=== PATIENT | female | born 1970 | race Caucasian/White ===

== ENCOUNTER → 2019-06-01 10:49 | Outpatient (BNVA) | payer OTHER, SELFPAY | PROVIDERS: Family Provider Family Medicine; PCP Family Medicine; Visit Provider Nurse Practitioner | DX: M47.816 Spondylosis without myelopathy or radiculopathy, lumbar region (principal); M47.817 Spondylosis without myelopathy or radiculopathy, lumbosacral region; F17.210 Nicotine dependence, cigarettes, uncomplicated; Z79.891 Long term (current) use of opiate analgesic | CPT/HCPCS: 99213 ==

== ENCOUNTER → 2019-09-26 15:26 | Outpatient (BNVA) | payer OTHER, SELFPAY | PROVIDERS: Family Provider Family Medicine; PCP Family Medicine; Visit Provider Anesthesiology | DX: M47.816 Spondylosis without myelopathy or radiculopathy, lumbar region (principal); F17.210 Nicotine dependence, cigarettes, uncomplicated; Z79.891 Long term (current) use of opiate analgesic | CPT/HCPCS: 99213; 99214 ==

== ENCOUNTER → 2019-12-07 10:54 | Outpatient (BNVA) | payer OTHER, SELFPAY | PROVIDERS: Family Provider Family Medicine; PCP Family Medicine; Visit Provider Anesthesiology | DX: M54.42 Lumbago with sciatica, left side (principal); M54.41 Lumbago with sciatica, right side; M47.816 Spondylosis without myelopathy or radiculopathy, lumbar region; F17.210 Nicotine dependence, cigarettes, uncomplicated; Z79.891 Long term (current) use of opiate analgesic | CPT/HCPCS: 99213; 99214 ==

== ENCOUNTER 2020-02-21 11:52 | Outpatient (CLI) | payer OTHER, SELFPAY ==
--- NOTE | 2020-02-21 12:08 | XR_ITS ---
WS: [id number] Chest 2 views, 02/21/2020 Clinical Data: CHRONIC COUGH Comparison: None. Findings: No nodules, masses or effusions are seen. The heart is normal. The pulmonary vascularity is not increased. No pneumonia or pneumothorax is seen. There is a clip in the right lung apex unchange d. There are clips from a cholecystectomy in the right upper quadrant. XR/XR chest 2V* [id number] Impression: Negative chest.
== END 2020-02-21 11:53 | disposition home or self-care (01) ==
LOC: RAD 11:57
PROVIDERS: PCP Family Medicine; Visit Provider Family Medicine
DX: R05 Cough (principal); M47.816 Spondylosis without myelopathy or radiculopathy, lumbar region; F17.210 Nicotine dependence, cigarettes, uncomplicated; Z79.891 Long term (current) use of opiate analgesic
CPT/HCPCS: 71046; 99212; 99214

== ENCOUNTER → 2020-04-17 13:43 | Outpatient (BNVA) | payer OTHER, SELFPAY | PROVIDERS: PCP Family Medicine; Visit Provider Anesthesiology | DX: M47.816 Spondylosis without myelopathy or radiculopathy, lumbar region (principal); F17.210 Nicotine dependence, cigarettes, uncomplicated; Z79.891 Long term (current) use of opiate analgesic | CPT/HCPCS: 99213 ==

== ENCOUNTER 2020-06-07 14:50 | Outpatient (CLI) | payer OTHER, SELFPAY ==
--- NOTE | 2020-06-07 14:57 | US_ITS ---
WS: [id number] ULTRASOUND RENAL TECHNIQUE: Ultrasound examination of both kidneys. CLINICAL INFORMATION: R FLANK PAIN/ACUTE UTI COMPARISON: None. FINDINGS: RIGHT: Right kidney is normal in size and appearance. Echogenicity: Normal. Cortical thickness: 1.1 cm; Normal. Hydronephrosis: None. Perinephric fluid: None. Right kidney measures: 10.6 cm x 5.6 cm x 3.9 cm. LEFT: Left kidney is normal in size and appearance. Echogenicity: Normal. Cortical thickness: 1.6 cm; Normal. Hydronephrosis: None. Perinephric fluid: None. Left kidney measures: 10.5 cm x 4.8 cm x 4.2 cm. Normal visualized aorta. Normal post void bladder. US/US renal BI* [id number] IMPRESSION: Normal renal ultrasound.
== END 2020-06-07 14:51 | disposition home or self-care (01) ==
LOC: US 14:52
PROVIDERS: PCP Family Medicine; Visit Provider Family Medicine
DX: R10.9 Unspecified abdominal pain (principal); N39.0 Urinary tract infection, site not specified
CPT/HCPCS: 76770

== ENCOUNTER → 2020-06-21 13:51 | Outpatient (BNVA) | payer OTHER, SELFPAY | PROVIDERS: PCP Family Medicine; Visit Provider Anesthesiology | DX: M47.816 Spondylosis without myelopathy or radiculopathy, lumbar region (principal); F17.210 Nicotine dependence, cigarettes, uncomplicated; Z79.891 Long term (current) use of opiate analgesic | CPT/HCPCS: 99213 ==

== ENCOUNTER 2020-07-12 15:49 | Outpatient (CLI) | payer OTHER, SELFPAY ==
--- NOTE | 2020-07-12 15:56 | MR_ITS ---
WS: [id number] MRI LUMBAR SPINE NONCONTRAST TECHNIQUE: Sagittal T1, T2 and STIR imaging. Axial T1 and T2 imaging. CLINICAL INFORMATION: ANKYLOSING SPONDYLITIS LUMBAR REGION, DDD, LUMBAR BACK PAIN COMPARISON: MRI 08/25 FINDINGS: Mild lumbar curve. Mild chronic compression deformity T12 superior endplate with Schmorl's node is un changed. No high-grade central canal stenosis. Disc bulging worse L4-5 with small annular fissure. L1-L2: Normal. L2-L3: No significant disc bulging. Mild facet arthropathy. Spinal canal and foramen are patent. L3-L4: Tiny left proximal foraminal protrusion. With slight contact of the exiting left L3 nerve root . Mild left foraminal narrowing. Mild facet arthropathy. Slight impingement on traversing left L4 ner ve root. L4-L5: Mild annular bulging with slight impingement traversing L5 nerve roots bilaterally. This is wo rse in the left. Annular bulging eccentric to the left with slight impingement on the exiting left L4 nerve root with mild to moderate left foraminal narrowing. Right foramen is patent. Mild facet arthr opathy. L5-S1: No significant disc bulging. Mild facet arthropathy. Spinal canal and foramen are patent. Tiny disc protrusions in the cervical spine at C4-C6 and T5-T6. Visualized pelvic bony structures: Normal. Paravertebral soft tissues: Normal. MR/MR lumbar spine wo con* [id number] IMPRESSION: 1. Mild lumbar curve. No acute compression. No high-grade central canal stenos is. 2. Mild disc bulging L4-5 eccentric to the left with slight impingement tristan sing left L5 nerve root. In addition left foraminal protrusion impinges the exi ting left L4 nerve root with mild to moderate left foraminal narrowing. 3. Small left foraminal protrusion L3-4 with narrowing of the left subarticula r recess and mild left L3-4 foraminal narrowing. 4. Mild facet arthropathy L3-L4 and L4-L5.
== END 2020-07-12 15:50 | disposition home or self-care (01) ==
LOC: RADSHAW 15:51
PROVIDERS: PCP Family Medicine; Visit Provider Family Medicine
DX: M45.6 Ankylosing spondylitis lumbar region (principal); M54.16 Radiculopathy, lumbar region; M53.80 Other specified dorsopathies, site unspecified; M47.816 Spondylosis without myelopathy or radiculopathy, lumbar region; M51.26 Other intervertebral disc displacement, lumbar region
CPT/HCPCS: 72148

== ENCOUNTER → 2020-07-25 16:08 | Outpatient (BNVA) | payer OTHER, SELFPAY | PROVIDERS: PCP Family Medicine; Referring Provider Family Medicine; Visit Provider Orthopaedic Surgery | DX: M54.5 Low back pain (principal); S22.080A Wedge compression fracture of T11-T12 vertebra, initial encounter for closed fracture | CPT/HCPCS: 72100 ==

== ENCOUNTER → 2020-08-02 12:58 | Outpatient (BNVA) | payer OTHER, SELFPAY | PROVIDERS: PCP Family Medicine; Visit Provider Anesthesiology | DX: M48.062 Spinal stenosis, lumbar region with neurogenic claudication (principal); M47.816 Spondylosis without myelopathy or radiculopathy, lumbar region; F17.210 Nicotine dependence, cigarettes, uncomplicated; Z79.891 Long term (current) use of opiate analgesic | CPT/HCPCS: 99213 ==

== ENCOUNTER → 2020-08-22 11:06 | Outpatient (BNVA) | payer OTHER, SELFPAY | PROVIDERS: PCP Family Medicine; Visit Provider Anesthesiology | DX: M48.062 Spinal stenosis, lumbar region with neurogenic claudication (principal); M47.816 Spondylosis without myelopathy or radiculopathy, lumbar region; F17.210 Nicotine dependence, cigarettes, uncomplicated; Z79.891 Long term (current) use of opiate analgesic | CPT/HCPCS: 62323; J1040; J3490 ==

== ENCOUNTER → 2020-08-23 13:53 | Outpatient (BNVA) | payer OTHER, SELFPAY | PROVIDERS: PCP Family Medicine; Visit Provider Anesthesiology | DX: M48.062 Spinal stenosis, lumbar region with neurogenic claudication (principal); M47.816 Spondylosis without myelopathy or radiculopathy, lumbar region; F17.210 Nicotine dependence, cigarettes, uncomplicated; Z79.891 Long term (current) use of opiate analgesic | CPT/HCPCS: 99213 ==

== ENCOUNTER → 2020-09-18 14:03 | Outpatient (BNVA) | payer OTHER, SELFPAY | PROVIDERS: PCP Family Medicine; Visit Provider Anesthesiology | DX: M48.062 Spinal stenosis, lumbar region with neurogenic claudication (principal); M47.816 Spondylosis without myelopathy or radiculopathy, lumbar region; F17.210 Nicotine dependence, cigarettes, uncomplicated; Z79.891 Long term (current) use of opiate analgesic | CPT/HCPCS: 99213 ==

== ENCOUNTER → 2020-10-16 13:41 | Outpatient (BNVA) | payer OTHER, SELFPAY | PROVIDERS: PCP Family Medicine; Visit Provider Orthopaedic Surgery | DX: M48.062 Spinal stenosis, lumbar region with neurogenic claudication (principal); Z11.52 Encounter for screening for COVID-19; Z20.822 Contact with and (suspected) exposure to COVID-19 | CPT/HCPCS: 87635 ==

== ENCOUNTER 2020-10-21 06:59 | Day surgery (SDC) | payer OTHER, SELFPAY ==
[2020-10-18 11:17] VITALS: BMI 23.6
--- NOTE | 2020-10-18 11:40 | ANES.PREANE2 ---
Pre-Anesthetic Assessment Pre-Anesthetic Assessment: Height/Weight: Height 1.6 m Weight 60.328 kg Preop Diagnosis: l4/5 lumbar stenosis Proposed Procedure: Operation Date: 10/21/20 08:30 Proposed Procedures p Lumbar Spine Decompression 03171 M48.062(Not Applicable) - Sergio Morin, Familial anesthetic complications: PONV Social: Social History: Tobacco Exam: Pre-Anes Outpt Exam: alert, oriented x 3, clear to auscultation bilaterally and regular rate & rhythm Airway: Cervical ROM: WNL MP: 1 Dentition: Full CV/HEM: Comments: MVP w/ regurge, mild GI: GI: GERD Musc/skel: Musc/skel: Fibromyalgia Comments: anklyosing spondylitis Neuropsych: Comments: spinal tumor removed (schwanoma) - some parasthesias in back occassionally where tumor was Anesthetic Plan: ASA status: 2 Anesthesia: General Risk of > 500 ml blood loss (7ml/kg in children): No PFSH Anesthesia PFSH: Medical History Encounter for long-term opiate analgesic use Fibromyalgia syndrome Low back pain of over 3 months duration Occasional cigarette smoker Opioid contract exists Surgical History Hx of appendectomy Hx of cholecystectomy Hx of hysterectomy Hx of laparoscopy scar tissue Hx of sinus surgery Hx of spinal surgery 2009 Green removed spinal tumor Family History Unknown Cancer Lung Mother Cancer Breast Cancer Social History Smoking and tobacco status: current some day smoker cigarettes [ Other cigarette details: Every now and then when drinking wine ] Alcohol intake: current Alcohol intake frequency: holidays/special occasions only Alcohol type: wine History of recent travel: No Data Anesthesia Cardiac Studies: No Data to Display
[2020-10-21] VITALS (20 sets, daily range): BP systolic 114–156; BP diastolic 80–107; PULSE 60–97; RESP 14–19; TEMP 36.1–36.6; O2SAT 96–100
--- NOTE | 2020-10-21 | SCC_ITS ---
Procedure Done: 1. Bilateral L4/5 Laminectomy with partial facetectomies 12.3 seconds of fluoroscopic guidance, for a cumulative dose of 2.04 mGy, was provided to Dr. Morin by the radiology department. C-arm images of the lumbar spine were saved for the patient's permanent record. [facility]
[2020-10-21] MEDS: sodium chloride 0.9% 1,000 ML 30 ML IV (07:27)
--- NOTE | 2020-10-21 07:58 | P.HP_ITS ---
Providers/Chief Complaint Primary Care Provider: Joel Isaacs DO Chief Complaint: lumbar decompression History of Present Illness Gena Maldonado is a 50 year old femalenset: 11 years ago Duration: years Characteristics: Crushing, aches, sharp, stabbing Severity: 5/10 Location: lumbar regioin Radiating symptoms: Down left leg and hips, numbness and tingling Aggravating factors: sitting, walking, standing Alleviating factors: pain meds, resting Neuro deficits: Patient denies, incontinence of bowel/bladder, saddle anesthesia. [facility] tx[facility] Review of Systems Narrative: Const: Denies: fever(s) or chills Card: Denies: chest pain or dyspnea on exertion Resp: Denies: dyspnea, productive cough or wheezing GI: Denies: abdominal pain, nausea or vomiting : Denies: difficulty voiding Musc: Reports: joint pain, joint swelling and limited range of motion Skin/Breast: Denies: changes in skin color or dry skin Neuro: Denies: numbness in extremities or weakness in extremities Psych: Denies: anxiety Gee/Lymph: Denies: easy bruising or easy bleeding Medications/Allergies Home Medications Medication Instructions Recorded Confirmed Last Taken Type bupropion HCl 150 mg 24 hr tablet, 300 mg PO QAM 06/01/19 10/21/20 10/21/20 05:00 History extended release hydroxyzine HCl 50 mg tablet 50 mg PO QID PRN 06/01/19 10/21/20 Unknown History trazodone 50 mg tablet 50 mg PO DAILY 06/01/19 10/21/20 10/20/20 History oxycodone 10 mg tablet 10 mg PO BID PRN 30 Days #60 tab 06/21/20 10/21/20 Unknown Rx baclofen 20 mg tablet 20 mg PO QID PRN 30 Days #120 tab 08/23/20 10/21/20 10/20/20 Rx oxycodone 30 mg tablet 30 mg PO QID PRN 30 Days #120 tab 09/18/20 10/21/20 10/21/20 04:00 Rx naproxen-diphenhydramine [Naproxen 1 tab PO QPM 10/18/20 10/21/20 Unknown History PM] Allergies Allergy/AdvReac Type Severity Reaction Status Date / Time FD and C blue no.1 Allergy ALGY-Hives Verified 10/21/20 07:20 [From SteriBlu] oxycodone [From OxyContin] Allergy ALGY-Hives Verified 10/21/20 07:20 prochlorperazine Allergy ADR-Nightma Verified 10/21/20 07:20 [From Compazine] re PFSH Acute PFSH: Medical History Encounter for long-term opiate analgesic use Fibromyalgia syndrome Low back pain of over 3 months duration Occasional cigarette smoker Opioid contract exists Surgical History Hx of appendectomy Hx of cholecystectomy Hx of hysterectomy Hx of laparoscopy scar tissue Hx of sinus surgery Hx of spinal surgery 2009 Green removed spinal tumor Family History Unknown Cancer Lung Mother Cancer Breast Cancer Social History Smoking and tobacco status: current some day smoker cigarettes [ Other cigarette details: Every now and then when drinking wine ] Alcohol intake: current Alcohol intake frequency: holidays/special occasions only Alcohol type: wine History of recent travel: No Vitals/I&O/Wt Last Vital Signs Temp 97.7 F 10/21/20 07:23 Pulse 69 10/21/20 07:23 Resp 18 10/21/20 07:23 BP 114/80 10/21/20 07:23 Pulse Ox 96 10/21/20 07:23 Physical Exam Narrative: EXAM NARRATIVE: EXAM NARRATIVE: CONSTITUTIONAL: The patient is a normal appearing 50 year old in no apparent distress. GENERAL: Patient in no acute distress. CARDIAC: Regular rate and rhythm. CHEST: Normal inspiratory effort, normal respiratory rate. ABDOMEN: Soft and nontender. SKIN: Clear, warm and intact. NEURO?PSYCH: The patient is alert and oriented to person, place and time. UnnerSensorv /SILTlMotor StrenathShoulder abduction CS + 5/5Wrist extension CGRadial + 5/5Elbow extension [id number] + 5/5Hand Grio CSUlnar + 5/5Finaer abduction T15/5 LowerSensory (SILT)Motor StrengthHin flexion L2/3Ant/inner thigh 5/5Hio adduction L2/3 5/5Knee extension L4Lat thigh 5/5Toe dorsiflexion LSSural +5/5Ankle dorsiflexion LS 515Plantar flexion S1 5/5 DTRBleeps 2+Triceps2+Brachioradialis 2+Patellar 2+Achilles 2+ MUSCULOSKELETAL: [] UPPEREXTREMITIES: The patient had full active ROM in fingers, wrist, elbow, and shoulder. The patient demonstrated ability to fully flex/extend/abduct/adduct fingers, make ok sign, cross 2nd/3rd digits, extend 1st digit fully.. Radial pulse 2+, CR<2 seconds. LOWER EXTREMITIES: Pt has full, active ROM of toes, ankle, knee, and hip. Dorsalis pedis/posterior tibialis pulses 2+, CR<2 seconds. SPINE: Skin warm, dry, intact. A&P Assessment and plan (1) Lumbar stenosis with neurogenic claudication: MIS Decompression Status: Acute Attestations Medical Necessity Statement*: failed conservative treatement Coding Level of Care Code Acute [employer] Caretaker for [facility] Fwd Diagnoses Lumbar stenosis with neurogenic claudication M48.062
--- NOTE | 2020-10-21 08:02 | W.PM.OPSUD ---
Surgery/Procedure H&P Update DATE OF PROCEDURE: October 21, 2020 DATE H&P PERFORMED: 10/21/20 PREOP DIAGNOSIS: l4/5 lumbar stenosis PLANNED PROCEDURE: Operation Date: 10/21/20 08:30 Proposed Procedures p Lumbar Spine Decompression 01719 M48.062(Not Applicable) - Sergio Morin DO
--- NOTE | 2020-10-21 08:27 | W.PM.OPSUD ---
Surgery/Procedure H&P Update DATE OF PROCEDURE: October 21, 2020 DATE H&P PERFORMED: 10/21/20 PREOP DIAGNOSIS: l4/5 lumbar stenosis PLANNED PROCEDURE: Operation Date: 10/21/20 08:30 Proposed Procedures p Lumbar Spine Decompression 96322 M48.062(Not Applicable) - Sergio Morin DO
--- NOTE | 2020-10-21 08:34 | P.ANESUD_ITS ---
Pre-Anesthetic Update Pre-Anesthetic Assessment: Date of Surgery/Procedure: 10/21/20 Preop Amber gnosis: l4/5 lumbar stenosis Proposed Procedure: Operation Date: 10/21/20 08:30 Proposed Procedures p Lumbar Spine Decompression 84240 M48.062(Not Applicable) - Sergio Morin, DO Any changes to Pre-Anesthetic Assessment?: No Last Intake: Intake Last Liquid Date 10/20/20 Last Liquid Time 21:00 Last Solid Date 10/20/20 Last Solid Time 21:00 Vitals: Temperature 97.7 F 10/21/20 07:23 Pulse Rate 69 10/21/20 07:23 Respiratory Rate 18 10/21/20 07:23 Blood Pressure 114/80 10/21/20 07:23 Blood Pressure Nayeli n 91 10/21/20 07:23 Pulse Oximetry 96 10/21/20 07:23 Oxygen Delivery Me thod 10/21/20 07:26 Exam: Pre-Anes Outpt Exam: alert, oriented x 3, clear to auscultation bilaterally and regular rate & rhythm Cardiac Studies: No Data to Display
--- NOTE | 2020-10-21 09:33 | P.OP_ITS ---
Operative Report Date of procedure: October 21, 2020 Pre-op Diagnosis: l4/5 lumbar stenosis Post-op diagnosis: same Procedure Done: 1. Bilateral L4/5 Laminectomy with partial facetectomies Surgeon: Sergio Morin Anesthesia: General Estimated blood loss (mL): 5 Condition: stable Disposition: PACU Procedure: 1. Bilateral L4/5 Laminectomy with partial facetectomies Patient is brought to the operative suite. After undergoing anesthesia they are placed in the supine position. All areas of impingement are well padded. Patient is then prepped and draped in the normal sterile fashion. A skin incision is made over the L4/5 level. This is confirmed under c-arm guidance. A series of dilators are passed and the tubular retractor is docked on the L4 lamina. A bovie is used to clear the soft tissue off the lamina and the L 4/5 facet joint. A high speed tony is then used to perform the laminectomy and take down the medial aspect of the L 4/5 facet joint. A kerrison rongeure was then used to take down the remaining lamina and smooth the edged of the laminectomy up to the point where the ligamentum flavum attaches. Attention was then brought to the medial aspect of the facet joint. The remaining medial aspect of the superior and inferior aspect of the facet joint were taken down with the kerrison from the pedicle of L4 to L 5. The facet joint had significant hypertrophy. Attention was then brought to the Ligamentum Flavum. The ligament was taken down from the lamina of L4 to L5 and out medially to the remaining facet joint. The ligament was thick. The dura was then exposed. The dura was in good repair. The L4 nerve was then traced with a curette out the L4/5 foramen and found to be adequately decompressed. The L5 nerve was traced with a curette around the L5 pedicle. The lateral recess was opened with a kerrison helping to further decompress the L5 nerve. The tubular retractor was then tilted to the contralateral side. The bovie was used to take down the soft tissue on the spinous process. The high speed tony was used to take down the spinous process and then the contralateral lamina of L4. The kerrison rongeur was used to take down the remaining lamina to the point where the ligamentum flavum attached and the ligamentum flavum was taken down from L4 to L5. The kerrison rongeur was then used to reach across and take down the medial aspect of the contralateral L4/5 facet joint.The currete was used to trace the contralateral L4 nerve out the L4/5 foramen to make sure it was decompressed adequatesly and the L5 was traced around the L5 pedicle. The lateral recess was opened further with the kerrison to ensure the L5 is adequ ately decompressed. Wound is then irrigated copiously with saline and surgiflo is used to stop any bleeding. The tubular retractor is removed and the wound is closed with vicryl and monocryl suture. Glue is then used to protect the wound. A sterile dressing is then placed. Patient was then placed in the supine position and transferred to the PACU in stable condition.
[2020-10-21] MEDS: fentaNYL 50 mcg/mL INJ 2mL IVP ×2 (09:43→09:48)
[2020-10-21] MEDS: ondansetron 2 mg/ML SDV 2 mL 4 MG IVP (09:46)
--- NOTE | 2020-10-21 09:48 | P.PCN_ITS ---
PACU note PACU note: VSS, Good respiratory effort, report to DIESEL ENGINE FITTER Post-Anesthesia Exam: awake
--- NOTE | 2020-10-21 09:48 | PM.PACU ---
PACU note PACU note: VSS, Good respiratory effort, report to CROSSBAR FRAME WIRER Post-Anesthesia Exam: awake
[2020-10-21] MEDS: morphine 4 mg/mL SDV 1 mL 2 MG IVP ×2 (09:56→09:58)
[2020-10-21] MEDS: HYDROmorphone 1 mg/mL INJ 1 mL 0.5 MG IVP ×2 (10:17→10:27)
--- NOTE | 2020-10-21 14:24 | XR_ITS ---
WS: [id number] INTRAOPERATIVE TECHNIQUE: 2 Spot fluoroscopic images for intraoperative purposes. FLUOROSCOPY TIME: 12.3 seconds CLINICAL INFORMATION: OR PICS COMPARISON: None. FINDINGS: Localization marker projected over the L4-5 interspace XR/XR lumbar spine 1V [id number] IMPRESSION: Images obtained for intraoperative purposes.
--- NOTE | 2020-10-21 17:08 | ANE.PACU2 ---
Inpatient post-anesthesia follow up: Airway intact: Yes Vital signs: Temperature 97.8 F Pulse Rate 78 Respiratory Rate 16 Blood Pressure 118/83 Pulse Oximetry 96 Oxygen Delivery Me thod Room Air Oxygen Flow Rate Fraction of Inspir ed Oxygen Hydration adequate: Yes Nausea and vomiting: No Pain level: 2 Mental status: Baseline
== END 2020-10-21 11:00 | disposition home or self-care (01) ==
PROVIDERS: PCP Family Medicine; Visit Provider Orthopaedic Surgery
PROC: (CPT 63005; principal; 2020-10-21 08:10)
DX: M48.062 Spinal stenosis, lumbar region with neurogenic claudication (principal); K21.9 Gastro-esophageal reflux disease without esophagitis; M79.7 Fibromyalgia; F17.210 Nicotine dependence, cigarettes, uncomplicated
CPT/HCPCS: 63047; 72020; 76000; 96365; J0690; J1100; J1170; J2270; J2405; J2704; J2710; J3010; J3490; J7030

== ENCOUNTER 2020-11-21 17:11 | Emergency (ER) | payer OTHER, SELFPAY ==
--- NOTE | 2020-11-21 17:31 | XRR_ITS ---
PROCEDURE INFORMATION: Exam: XR Chest Exam date and time: 11/21/2020 5:31 PM Age: 50 years old Clinical indication: Shortness of breath; Additional info: Dyspnea TECHNIQUE: Imaging protocol: XR of the chest. Views: 1 view. COMPARISON: CR XR chest 2V* [id number] 02/21/2020 12:14 PM FINDINGS: Lungs: Unremarkable. No consolidation. Pleural spaces: Unremarkable. No pleural effusion. No pneumothorax. Heart/Mediastinum: Unremarkable. No cardiomegaly. Bones/joints: Unremarkable. XR/XR chest 1V portable [id number] IMPRESSION: No acute findings.
[2020-11-21 18:01] VITALS: BP 134/87; PULSE 72; RESP 18; TEMP 36.8; O2SAT 98; BMI 23.6
[2020-11-21 18:15] VITALS: O2SAT 99
--- NOTE | 2020-11-21 18:15 | ED_ITS ---
HPI - COVID General: Chief Complaint: COVID symptoms Stated Complaint: Covid +, couughing, SOB Time Seen by Provider: 11/21/20 18:03 Triage information: Has fever, cough or shortness of breath . Exposure to COVID + person last 14 days History of Present Illness: HPI Narrative: 50-year-old female comes in today with complaints of cough and congestion with body aches for the last 6 days. Patient tested positive for COVID-[address] [facility] today. Patient appears unwell but not toxic. Patient appears in no pain. Patient does have some chronic disease including facet arthritis, fibromyalgia, and chronic low back pain with use of narcotics. COVID 19 common symptoms: positive dyspnea COVID Results: Nasal/Oral Coronavirus 2019 PCR Not detected 10/16/20 13:41 10/16/20 Review of Systems General: Reports: 10 or more systems reviewed and unremarkable except in HPI and below Resp: Reports: dyspnea Musc: Reports: other (Myalgias) [facility] ED PFSH: Medical History (Updated 11/21/20 @ 19:45 by RUSSELL Bland) Encounter for long-term opiate analgesic use Fibromyalgia syndrome Low back pain of over 3 months duration Occasional cigarette smoker Opioid contract exists Surgical History Hx of appendectomy Hx of cholecystectomy Hx of hysterectomy Hx of laparoscopy scar tissue Hx of sinus surgery Hx of spinal surgery 2009 Green removed spinal tumor Family History Unknown Cancer Lung Mother Cancer Breast Cancer Social History Smoking and tobacco status: current some day smoker cigarettes [ Other cigarette details: Every now and then when drinking wine ] Alcohol intake: current Alcohol intake frequency: holidays/special occasions only Alcohol type: wine History of recent travel: No Physical Exam Const: COMMON NORMALS: no acute distress and patient oriented x3 GENERAL APPEARANCE: cooperative HENMT: COMMON NORMALS: normocephalic, TM's normal bilaterally and Normal external nose present HEAD & SCALP: normal to inspection and normocephalic NOSE: Normal external nose present TYMPANIC MEMBRANE: TM's normal bilaterally MOUTH: Normal oral and palatal mucosa present THROAT: posterior oropharynx normal Eye: GENERAL EYE: appearance normal, both eyes and all related structures Neck/C-Spine: COMMON NORMALS: full ROM Lymph: LYMPHATIC: no lymphadenopathy noted Chest: COMMONS NORMALS: normal inspection of the chest Resp: COMMON NORMALS: normal respiratory effort EFFORT & INSPECTION: Yes able to speak in complete sentences AUSCULTATION: wheezes Cardio: COMMON NORMALS: regular rate and regular rhythm RATE: regular rate RHYTHM: regular rhythm GI: COMMON NORMALS: non-tender Back/Pelvis: COMMON NORMALS: thoracic and lumbar spine normal to inspection Extremity: COMMON NORMALS: normal to inspection Neuro: COMMON NORMALS: patient oriented x3 and moves all extremities Psych: COMMON NORMALS: mental status grossly normal and cooperative Skin: COMMON NORMALS: no rashes or lesions noted GENERAL SKIN EXAM: no r ashes or lesions noted Course Vital Signs: Vital signs: Vital Signs Temperature 98.2 F 11/21/20 18:01 Pulse Rate 72 11/21/20 18:01 Respiratory Rate 18 11/21/20 18:01 Blood Pressure 134/87 11/21/20 18:01 Pulse Oximetry 99 11/21/20 18:15 MDM - COVID MDM Narrative: Medical decision making narrative: Patient comes in for evaluation of persistent cough and body aches for the last 6 days. Patient was diagnosed with COVID-19. On exam patient has some rhonchi in the lung pierre with occasional wheeze. Patient does have good air movement throughout. Vital signs are normal. Differential diagnosis includes pneumonia, viral syndrome, COVID-19. Chest x-ray showed no obvious pneumonia at this time although there was a slightly hazy field in the left lower lung which may be developing pneumonia.. Reviewed exam with patient recommended monoclonal antibody due to her chronic disease and disability secondary to back pain and narcotic use. Reviewed the medication with patient and she was agreeable for the infusion. I will place order for infusion therapy LUIS. Patient will be prescribed albuterol to help with her cough and shortness of breath. Patient was instructed to monitor her pulse oximetry. COVID Results: Nasal/Oral Coronavirus 2019 PCR Not detected 10/16/20 13:41 10/16/20 Discharge Plan Discharge Patient Disposition: Home Clinical Impression: COVID-19 Condition: Stable Prescriptions: New albuterol sulfate 90 mcg/actuation HFA aerosol inhaler 2 inh inhalation Q4H PRN (Reason: shortness of breath or wheezing) Qty: 8.5 RF: 0 No Action trazodone 50 mg tablet 50 mg PO DAILY RF: 0 hydroxyzine HCl 50 mg tablet 50 mg PO QID PRN (Reason: Pain) RF: 0 bupropion HCl [Wellbutrin XL] 150 mg tablet extended release 24 hr 300 mg PO QAM RF: 0 oxycodone 10 mg tablet 10 mg PO BID PRN (Reason: pain) 30 Days Qty: 60 RF: 0 oxycodone 30 mg tablet 30 mg PO QID PRN (Reason: pain) 30 Days Qty: 120 RF: 0 baclofen 20 mg tablet 20 mg PO QID PRN (Reason: spasms) 30 Days Qty: 120 RF: 1 Naproxen PM 220-25 mg Tablet 1 tab PO QPM RF: 0 Discharge Orders: Discharge ED (Routine); Ordered 11/21/20 Ordered By: Kris López Other Ambulatory Orders: Request for MCA (Routine) Timeframe: 1 Day Facility: [facility] - Location: Outpatient Surgical Services Ordered By: Kris López Referrals: Joel Isaacs DO [Primary Care Provider] - Discharge Diet: Usual diet Discharge Activity: Increase activity as tolerated Patient Instructions: Opioid Safety Activity Restrictions/Additional Instructions: Drink plenty of fluids. Use acetaminophen and ibuprofen to help control body aches and fever. Use albuterol inhaler 2 puffs every 4 hours as needed for cough, shortness of breath, or wheezing. Infusion lab will contact you regarding monoclonal antibody infusion over the next 2 days. Monitor pulse oxygen as needed for increased shortness of breath. If you notice a pulse oximetry reading that is below 90% but does not recover after moving around or taking a couple of deep breaths you should return to the ER for further evalu ation and treatment. Follow-up with primary care as needed. Return to the ER for worsening symptoms or new concerns. Coding Level of Care Code ED [employer] Support for [facility]ak Kirby Exam Comprehensive
[2020-11-21 20:01] VITALS: PULSE 64; RESP 18; O2SAT 100
[2020-11-21 20:02] VITALS: PULSE 64; RESP 18; O2SAT 100
== END 2020-11-21 20:03 | disposition home or self-care (01) ==
PROVIDERS: Emergency Provider Nurse Practitioner Family; PCP Family Medicine
DX: U07.1 COVID-19 (principal); F17.210 Nicotine dependence, cigarettes, uncomplicated
CPT/HCPCS: 71045; 99283; J3535

== ENCOUNTER 2020-11-22 09:26 | Outpatient (CLI) | payer OTHER, SELFPAY ==
[2020-11-22 09:48] VITALS: BP 126/81; PULSE 80; RESP 16; TEMP 36.4; O2SAT 96
[2020-11-22 10:10] VITALS: BP 114/79; PULSE 73; RESP 16; O2SAT 96
[2020-11-22 11:01] VITALS: BP 120/80; PULSE 71; TEMP 36.8; O2SAT 95
== END 2020-11-22 09:27 | disposition home or self-care (01) ==
PROVIDERS: PCP Family Medicine; Visit Provider Nurse Practitioner Family
DX: U07.1 COVID-19 (principal)
CPT/HCPCS: 96365

== ENCOUNTER → 2020-12-04 14:31 | Outpatient (BNVA) | payer OTHER, SELFPAY | PROVIDERS: PCP Family Medicine; Visit Provider Anesthesiology | DX: G89.29 Other chronic pain (principal); M47.816 Spondylosis without myelopathy or radiculopathy, lumbar region; F17.210 Nicotine dependence, cigarettes, uncomplicated; Z79.891 Long term (current) use of opiate analgesic | CPT/HCPCS: 99213 ==

== ENCOUNTER → 2021-02-05 14:48 | Outpatient (BNVA) | payer OTHER, SELFPAY | PROVIDERS: PCP Family Medicine; Visit Provider Anesthesiology | DX: G89.29 Other chronic pain (principal); M47.816 Spondylosis without myelopathy or radiculopathy, lumbar region; I34.1 Nonrheumatic mitral (valve) prolapse; F32.A Depression, unspecified; Z71.6 Tobacco abuse counseling; F17.210 Nicotine dependence, cigarettes, uncomplicated; Z79.891 Long term (current) use of opiate analgesic | CPT/HCPCS: 99214 ==

== ENCOUNTER 2022-01-28 15:39 | Outpatient (CLI) | payer OTHER, SELFPAY ==
--- NOTE | 2022-01-28 16:02 | XR_ITS ---
WS: [id number] Bilateral hips, 2 views each, 01/28/2022 Clinical Data: PAIN IN RIGHT AND LEFT HIP Comparison: Bilateral hips, 09/10/2015. Findings: Right hip: There are no fractures or dislocations. The right hip shows no narrowing, erosion, sclerosis or fragm entation of the right femoral head. There is a prominent acetabular spur. Left hip: There are no fractures or dislocations. The left hip shows no narrowing, erosion, sclerosis or fragme ntation of the left femoral head. There is a small left acetabular spur. 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
== END 2022-01-28 15:40 | disposition home or self-care (01) ==
PROVIDERS: PCP Family Medicine; Visit Provider General Practice
DX: M16.0 Bilateral primary osteoarthritis of hip
CPT/HCPCS: 73522

== ENCOUNTER 2022-03-10 15:53 | Outpatient (CLI) | payer OTHER, SELFPAY ==
--- NOTE | 2022-03-10 16:08 | XR_ITS ---
WS: [id number] XR shoulder RT min 2V* [id number] REASON FOR EXAM: right shoulder pain after lifting something over her head FINDINGS: No fracture or focal bone lesion. Minimal narrowing of the acromioclavicular joint with mild marginal sclerosis and osteophytosis. Glenohumeral joint is intact and relatively well-preserved. There is mild subchondral sclerosis in th e glenoid and small osteophytosis of the femoral head. There is mild subchondral sclerosis and cystic change in the biceps tuberosity. XR/XR shoulder RT min 2V* [id number] IMPRESSION: Mild osteoarthritis of the acromioclavicular and glenohumeral joints. Mild rotator cuff tendon arthropathy.
== END 2022-03-10 15:54 | disposition home or self-care (01) ==
LOC: RAD 15:57
PROVIDERS: PCP Family Medicine; Visit Provider Clinical Nurse Specialist Adult Health
DX: M19.011 Primary osteoarthritis, right shoulder (principal)
CPT/HCPCS: 73030

== ENCOUNTER 2022-03-23 16:07 | Outpatient (CLI) | payer OTHER, SELFPAY ==
--- NOTE | 2022-03-23 16:00 | MR_ITS ---
WS: [id number] MRI RIGHT SHOULDER HISTORY: suspected rotator cuff tear COMPARISON: 03/10/2022 TECHNIQUE: Multiplanar sequences of the shoulder joint are submitted. Mild AC joint arthritis. Moderate narrowing of the AC joint with hypertrophic osteophytes and a small amount of edema. 5 mm osteophyte encroaches upon the supraspinatus muscle. 4 mm osteophyte distal un dersurface of the acromion with mild subacromial impingement. There is a small amount of fluid in the subacromial and subdeltoid bursa. Biceps tendon is normal. No os acromion. No rotator cuff tear. There is no edema or atrophy of the muscles. Very mild tendinopathy in the dist al supraspinatus with mild fraying along the bursal and articular surfaces of the tendon. Mild narrow ing of the glenohumeral joint. No labral tear. MR/MR shoulder RT wo con* [id number] IMPRESSION: 1. Moderate AC joint osteoarthritis with mild encroachment upon the supraspina tus. 2. Mild subacromial impingement. 3. No rotator cuff tear. 4. Very mild tendinopathy distal supraspinatus.
== END 2022-03-23 16:08 | disposition home or self-care (01) ==
PROVIDERS: PCP Family Medicine; Visit Provider Clinical Nurse Specialist Adult Health
DX: M25.511 Pain in right shoulder (principal); M75.101 Unspecified rotator cuff tear or rupture of right shoulder, not specified as traumatic
CPT/HCPCS: 73221

== ENCOUNTER 2022-06-16 12:33 | Day surgery (SDC) | payer OTHER, SELFPAY ==
[2022-06-15 16:56] VITALS: BMI 24.4
[2022-06-16] VITALS (8 sets, daily range): BP systolic 122–153; BP diastolic 78–107; PULSE 80–92; RESP 16–18; TEMP 36.1–36.8; O2SAT 97–100
--- NOTE | 2022-06-16 13:03 | W.PM.OPSUD ---
Surgery/Procedure H&P Update DATE OF PROCEDURE: June 16, 2022 DATE H&P PERFORMED: 05/18/22 CHANGES TO PREVIOUS DOCUMENTATION: None PREOP DIAGNOSIS: Right shoulder AC joint arthritis, subacromial impingement PRIMARY INDICATION FOR PROCEDURE: Right shoulder AC joint arthritis and subacromial impingement syndrome PLANNED PROCEDURE: Operation Date: 06/16/22 14:10 Proposed Procedures p right shoulder diagnostic and surgical subacromial decompression 67355 with bursectomy and anterior cruciate resection. 30905, M75.41(Right) - DO ximena Gomez Acromioplasty(Right) - DO ximena Gomez Bursectomy(Right) - DO ximena Gomez AC Separation Repair (Shoulder) AC Joint Resection(Right) - Ryan Chavez DO
[2022-06-16] MEDS: scopolamine 1.5 Patch 1 PATCH TRANSDERMA (13:41)
[2022-06-16] MEDS: ketorolac 30 mg/mL INJ IVP (13:41)
[2022-06-16] MEDS: sodium chloride 0.9% 1,000 ML 30 ML IV (13:42)
[2022-06-16] MEDS: acetaminophen 1,000 MG/100 ML PIGGYBACK 400 MG IV (13:42)
--- NOTE | 2022-06-16 15:00 | ANES.PREANE2 ---
Pre-Anesthetic Assessment Height/Weight: Height 1.6 m Weight 62.596 kg Temp Pulse Resp BP Pulse Ox O2 Del Method 98.3 F 80 18 123/93 97 06/16/22 13:54 06/16/22 13:54 06/16/22 13:54 06/16/22 13:54 06/16/22 13:54 06/16/22 13:54 Preop Diagnosis: Right shoulder AC joint arthritis, subacromial impingement Operation Date: 06/16/22 14:10 Proposed Procedures p right shoulder diagnostic and surgical subacromial decompression 30943 with bursectomy and anterior cruciate resection. 21630, M75.41(Right) - Ryan Kathy, DO s Acromioplasty(Right) - Ryan Stevens, DO s Bursectomy(Right) - Ryan Kathy, DO s AC Separation Repair (Shoulder) AC Joint Resection(Right) - Ryan Stevens, DO Familial anesthetic complications: PONV Was Beta Mariam taken within 24 hours: N/A Was Clonidine taken within 24 hours: N/A Last intake: Intake Last Liquid Date 06/16/22 Last Liquid Time 03:00 Last Solid Date 06/15/22 Last Solid Time 20:00 Social No alcohol and No tobacco Exam alert, oriented x 3, clear to auscultation bilaterally and regular rate & rhythm Airway Submandibular: within normal limits Cervical ROM: within normal limits Mallampati: Class I Dentition: chipped History/ROS No significant history except as noted and No significant complaints Pulmonary None reported CV/HEM MR with prolapse None reported Hepatic None reported GI None reported Metabolic None reported Musc/skel Lower Back Pain Neuropsych None reported Anesthetic Plan ASA status: 2 Anesthesia: Anesthesia Evaluation, Eval. for regional block and General Risk of > 500 ml blood loss (7ml/kg in children): Yes, adequate IV access and fluids planned Medications/Allergies Home Medications Medication Instructions Recorded Confirmed Last Taken Type hydroxyzine HCl 50 mg tablet 50 mg PO QID PRN Pain 06/01/19 06/15/22 12/24/21 History trazodone 50 mg tablet 50 mg PO DAILY 06/01/19 06/15/22 06/15/22 History albuterol sulfate 90 mcg/actuation 2 inh inhalation Q4H PRN shortness 11/21/20 06/15/22 12/31/21 Rx aerosol inhaler of breath or wheezing #8.5 grams oxycodone 10 mg tablet 10 mg PO BID PRN pain 30 days #60 02/05/21 06/15/22 06/16/22 Rx tabs baclofen 20 mg tablet 20 mg PO QID PRN spasms 30 days 06/15/22 06/15/22 06/15/22 Rx #120 tabs bupropion HCl 300 mg 24 hr tablet, See Rx Instructions .Route 06/15/22 06/15/22 06/16/22 Rx extended release .COMPLEX #90 tabs calcium carbonate 600 mg-vitamin 1 tab PO BID Bone health and 06/16/22 Unknown Rx D3 10 mcg (400 unit) tablet healing 30 days #60 tabs ondansetron 4 mg disintegrating 4 mg PO DAILY 5 days #5 tabs 06/16/22 Unknown Rx tablet oxycodone-acetaminophen 5 mg-325 1 tab PO Q6H PRN pain 7 days #28 06/16/22 Unknown Rx mg tablet (Percocet) tabs Allergies Allergy/AdvReac Type Severity Reaction Status Date / Time oxycodone [From OxyContin] Allergy ADR-Anxiety Verified 06/15/22 17:00 prochlorperazine Allergy ADR-Nightma Verified 05/18/22 07:19 [From Compazine] re steri strips Allergy ALGY-Bliste Uncoded 06/15/22 16:59 r Current Medications Generic Name Dose Route Start Last Admin Trade Name Freq PRN Reason Stop Dose Admin Sodium Chloride 1,000 mls @ 30 mls/hr 06/16/22 12:45 06/16/22 13:42 Sodium Chloride 0.9% IV 06/17/22 12:44 30 mls/hr .Q24H KATRIN Administration PFSH Anesthesia Medical History (Updated 05/22/22 @ 19:26 by Ryan Chavez DO) Acromioclavicular joint arthritis Chronic low back pain Encounter for long-term opiate analgesic use Fibromyalgia syndrome Low back pain of over 3 months duration Occasional cigarette smoker Opioid contract exists Surgical History Hx of appendectomy Hx of cholecystectomy Hx of hysterectomy Hx of laparoscopy scar tissue Hx of sinus surgery Hx of spinal surgery 2009 Green removed spinal tumor Family History Unknown Cancer Lung Mother Cancer Breast Cancer Social History Alcohol intake: current Alcohol intake frequency: holidays/special occasions only Alcohol type: wine Data Anesthesia Cardiac Studies: No Data to Display
[2022-06-16] MEDS: ceFAZolin 2,000 MG in sodium chloride 0.9% (plus) 50 ML 100 MG IV (15:36)
[2022-06-16] MEDS: EPINEPHrine 1 mg/mL INJ XX (16:56)
--- NOTE | 2022-06-16 17:13 | P.OP_ITS ---
Operative Report Date of procedure: June 16, 2022 Pre-op diagnosis: Preop Diagnosis Right shoulder AC joint arthritis, subacromial impingement Procedure: Post-op diagnosis: Right shoulder SLAP tear and biceps tendon tear Right shoulder AC joint arthritis Right shoulder subacromial bursitis Procedure done: Right shoulder diagnostic and surgical arthroscopy with biceps tenodesis, AC joint resection, subacromial decompression(acromioplasty and bursectomy) Surgeon: Ryan Chavez DO Estimated blood loss: 25 mL IV fluids: 900 mL Complications: None Condition: stable Disposition: same day Brief History: Patient been seen and worked up in the outpatient setting for left shoulder pain. Patient had MRI findings which are listed below.? Patient's failed conservative treatment in the outpatient setting with only temporary relief from corticosteroid injection. We talked about treatment options far as nonoperative and operative intervention..? We talked about risk benefits complication alternatives surgical nonsurgical treatment options.? Understanding risk of surgery and agrees to proceed with surgical intervention.? All questions have been answered at this time.? Patient elects proceed with surgery and consent obtained in office. MRI findings right shoulder IMPRESSION: ? IMPRESSION: ? 1.? Moderate AC joint osteoarthritis with mild encroachment upon the supraspin atus. 2.? Mild subacromial impingement. 3.? No rotator cuff tear. 4.? Very mild tendinopathy distal supraspinatus. . Procedure: Patient seen evaluated in the preoperative holding area.? Consent reviewed and signed with patient.? Once again reviewed patient's MRI results as well as planned surgical intervention.? Correct extremity marked.? Patient seen evaluated by anesthesia department received regional anesthesia.? Once ready for surgery was taken back to the operative suite.? Patient then subsequently underwent anesthesia per the anesthesia department was transported onto the OR table.? Patient was then placed into a lateral decubitus position with a beanbag and was appropriately secured to the bed.? All bony prominences well-padded.? Patient then had the right upper extremity was then prepped and draped in standard orthopedic fashion.? Patient received appropriate preoperative antibiotics.? Final timeout performed. The Right upper extremity was then held in hanging from traction utilizing sterile technique.? Next started with standard diagnostic and surgical arthroscopy with posterior portal position introduced arthroscope into the glenohumeral joint.? Visualized the glenohumeral joint I then introduced a spinal needle within the rotator cuff interval to confirm appropriate anterior portal placement.? Once this was confirmed I then made my small incision and t hen introduced my arthroscopic shaver into the glenohumeral joint.? After flushing the joint fluid, was clearly evident patient had biceps tendon tearing as well as SLAP tear. Patient had appreciable unstable biceps anchor most pronounced in the posterior aspect of the superior labrum. 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 Given there appears to be healthy intra-articular tendon plan was for an intra-articular biceps tenodesis at the superior portion as it enters the intertubercular groove. Thermal wand introduced into the rotator interval. I then release of the rotator interval to have appropriate visualization and the inability to perform biceps tenodesis. At this point I established a purple passport cannula which was introduced. Next I performed an Arthrex loop and tap biceps tenodesis. Passer was then made through the tendon luggage tag stitch around and then lasted around twice I then utilized a thermal wand to release the biceps tendon at the anchor to perform with tenotomy. I then loaded with suture onto an Arthrex 4.75 swivel lock suture anchor. A punch was then placed in appropriate position at the entry point into the intertubercular groove just superior to the subscapularis tendon. Punch was then introduced to the appropriate depth. The suture loaded on the swivel lock was then advanced held under appropriate tension and shoulder lock anchor was then advanced and had excellent fixation. Excess suture was then cut biceps tenodesis was complete. I then utilized a thermal wand to seal the edges of the superior labrum. Thorough evaluation of the glenohumeral joint showed pristine cartilage with no chondral injury of the humeral head or glenoid. The axillary recess was free of loose bodies and the rest of the labrum was intact. The undersurface of the rotator cuff was intact with no signs of rotator cuff tear. This completed my intra-articular work all fluid was then suctioned intra-articularly arthroscope was then advanced into the subacromial space. Next I reintroduced the arthroscope posteriorly.? And went to the subacromial space.? I established my lateral working portal. Thermal wand was then introduced laterally and then I subsequently performed extensive bursectomy of the subacromial space.? Identified the anterior edge of the acromion the lateral edge of the acromion and performed complete bursectomy. Next thermal wand was tracked anteriorly and identified patient had pronounced anterior bone spur.? At this point time I proceeded my way to the AC joint once the AC joint was found was found to be significantly arthritic with a very significant tight space. Thermal wand was placed anteriorly to establish appropriate plane for AC joint resection.? Once appropriate margins and anterior inferior and anterior capsule was released I then introduced arthroscopic shaver and a bur and performed AC joint resection of both the acromion to coplane at the AC joint and a distal clavicle resection was then performed totaling 1 cm in size and was confirmed.? This completed my AC joint resection and I then introduced the arthroscopic shaver laterally while continuing to view posteriorly.? I then performed an acromioplasty of the anterior bone spur as well as Coplaned my acromioplasty with the AC joint. No signs of bone spurs for impingement on the supraspinatus rotator cuff tendon. From the posterior portal I then visualized after my bursectomy of the rotator cuff tendon which was found to be pristine and intact. Next I then introduced the arthroscopic shaver posteriorly to complete my subacromial decompression appropriate complaining all the way up to the lateral edge of the acromion.? Once again visualized the rotator cuff and took the shoulder through range of motion and the rotator cuff was intact with no signs of tear. This completed the surgery.? All fluid was suctioned from the shoulder.? All instruments were removed.? The lateral incision was then closed with nylon stitches.? As well as the portal sites closed with portal nylon stitches.? Xeroform 4 x 4's ABD and tape was then applied to the right shoulder and was placed into a shoulder abduction pillow sling for rotator cuff repair.? Patient was then awakened from anesthesia and then taken back to PACU in stable condition.? Patient tolerated procedure without any issues. Disposition: Patient taken back in stable condition recovering well.? Dressings on in place clean dry and intact.? Will have 5 pound weight restriction postoperatively secondary to biceps tenodesis. We will follow postoperative therapy protocol.? Patient to follow-up with me in the office in 2 weeks.? Patient will receive appropriate discharge instruction as well as pain medication postoperatively.? All questions answered.? We will contact the office for any questions or concerns.
--- NOTE | 2022-06-16 17:13 | PM.OP2 ---
Brief Operative Note Date of procedure: 06/16/22 Pre-op diagnosis: Right shoulder subacromial impingement, AC joint arthritis Post-op diagnosis: same (And SLAP tear with biceps tendon tearing) Procedure Done: Right shoulder diagnostic and surgical arthroscopy with biceps tenodesis Right shoulder diagnostic and surgical arthroscopy with subacromial decompression (bursectomy and acromioplasty) Right shoulder diagnostic and surgical arthroscopy with acromioclavicular joint resection Surgeon: Ryan Chavez Estimated blood loss (mL): 25 Complications: None Post-op Plan: Patient taken to PACU in stable condition recovering well sling on in place. Will receive appropriate discharge instructions as well as pain medication postoperatively. Sling on and in place. Patient will have a 5 pound weight restriction secondary to biceps tenodesis will follow biceps tenodesis protocol with therapy. We will follow-up with me in the office in 2 weeks. All questions answered. Understands if any questions or concerns can contact the office. Condition: stable Disposition: same day Coding Level of Care Code Acute Code for Palak Kirby
--- NOTE | 2022-06-16 17:13 | PM.PACU ---
PACU note Narrative: Patient taken to PACU in stable condition recovering well. Dressing on in place clean dry and intact sling on in place with abduction pillow. Unable to assess motor or sensory secondary to regional. Distal pulses are palpable hand warm well perfused. Exam: awake Disposition: discharged
[2022-06-16] MEDS: fentaNYL 50 mcg/mL INJ 2mL IVP (17:40)
--- NOTE | 2022-06-16 17:45 | ANE.PACU2 ---
Inpatient post-anesthesia follow up: Airway intact: Yes Vital signs: Temperature 97.4 F Pulse Rate 82 Respiratory Rate 17 Blood Pressure 143/89 Pulse Oximetry 99 Oxygen Delivery Me thod Room Air Oxygen Flow Rate Fraction of Inspir ed Oxygen Hydration adequate: Yes Nausea and vomiting: No Pain level: 1 Mental status: Baseline
== END 2022-06-16 19:02 | disposition home or self-care (01) ==
PROVIDERS: PCP Family Medicine; Visit Provider Student in an Organized Health Care Education/Training Program
PROC: (CPT 29805; principal; 2022-06-16 14:00)
PROC: (CPT 23130; 2022-06-16 14:00)
PROC: (CPT 29807; 2022-06-16 14:00)
PROC: (CPT 29807; 2022-06-16 14:00)
DX: S43.431A Superior glenoid labrum lesion of right shoulder, initial encounter (principal); S46.211A Strain of muscle, fascia and tendon of other parts of biceps, right arm, initial encounter; M17.11 Unilateral primary osteoarthritis, right knee; M75.51 Bursitis of right shoulder; M25.811 Other specified joint disorders, right shoulder; X58.XXXA Exposure to other specified factors, initial encounter
CPT/HCPCS: 29807; 29826; 29828; J0131; J0171; J0690; J1100; J1885; J2250; J2405; J2704; J2795; J3010; J3490; J7030

== ENCOUNTER → 2022-11-03 08:24 | Outpatient (BNVA) | payer OTHER, SELFPAY | PROVIDERS: PCP Family Medicine; Visit Provider Family Medicine | DX: R79.89 Other specified abnormal findings of blood chemistry (principal); E03.9 Hypothyroidism, unspecified | CPT/HCPCS: 84436; 84443; 84481; 86376 ==

== ENCOUNTER → 2022-12-28 12:44 | Outpatient (BNVA) | payer OTHER, SELFPAY | PROVIDERS: PCP Family Medicine; Visit Provider Family Medicine | DX: R79.89 Other specified abnormal findings of blood chemistry (principal); R76.8 Other specified abnormal immunological findings in serum; E03.9 Hypothyroidism, unspecified | CPT/HCPCS: 84436; 84443; 84481 ==

== ENCOUNTER 2023-04-28 12:34 | Emergency (ER) | payer OTHER, SELFPAY ==
[2023-04-28 12:41] VITALS: BP 150/99; PULSE 88; RESP 16; TEMP 36.7; O2SAT 99; BMI 24.7
--- NOTE | 2023-04-28 13:09 | XR_ITS ---
WS: [id number] Exam: XR acute abdomen series [id number] Date/Time of Exam: 04/28/2023 1:09 PM Reason For Exam: abd pain, cough AP chest compared to prior study 11/21/2020. The lungs are clear and fully inflated. Normal cardiomediastinal silhouette. No pleural effusions. Re gional bony elements are intact. Metallic clip superimposes the RIGHT lung apex. IMPRESSION: 1. No acute cardiopulmonary finding. Flat and erect abdomen. No bowel obstruction or pneumoperitoneum. Signs of prior cholecystectomy. No sign of organ enlargement. Normal bowel gas pattern. Bony structures are intact. Moderate DJD of both hips. IMPRESSION: 1. No acute abdominal process.
--- NOTE | 2023-04-28 13:11 | W.ED.ABDPA2 ---
HPI - Abdominal Pain General: Chief Complaint: Abdominal Pain Stated Complaint: abd pain Time Seen by Provider: 04/28/23 13:02 History of Present Illness: 52-year-old female comes in today with complaints of right upper quadrant abdominal pain and epigastric pain. Patient reports on Wednesday she had taken a hydroxyzine and it got stuck in her throat and over time it just felt like it slowly went down her throat causing irritation of her esophagus. Patient reports she continues to have a burning sensation in her esophagus that goes down to her right upper quadrant of her abdomen. Patient appears nontoxic. Patient does report cough. Patient made several list of her symptoms and concerns. Patient has history of gallbladder surgery, appendicitis, endometriosis, hysterectomy, laparoscopic surgery, chronic pain, and anxiety. Associated Symptoms: Reports chills, diarrhea (Once), nausea and vomiting (Once); Denies fever(s) Review of Systems General: Reports: 10 or more systems reviewed and unremarkable except in HPI and below Const: Reports: chills; Denies: fever(s) ENMT: Reports: throat pain Card: Denies: chest pain Resp: Reports: non-productive cough GI: Reports: abdominal pain, nausea, vomiting (Once) and diarrhea (Once) : Denies: difficulty voiding Musc: Denies: neck pain or back pain Skin/Breast: Denies: rash Neuro: Denies: headache(s) Psych: Denies: anxiety or depression Endo: Denies: polyuria PFSH ED PFSH: Medical History Acromioclavicular joint arthritis Chronic low back pain Encounter for long-term opiate analgesic use Fibromyalgia syndrome Low back pain of over 3 months duration Occasional cigarette smoker Opioid contract exists Surgical History Hx of appendectomy Hx of cholecystectomy Hx of hysterectomy Hx of laparoscopy scar tissue Hx of sinus surgery Hx of spinal surgery 2009 Green removed spinal tumor Family History Unknown Cancer Lung Mother Cancer Breast Cancer Social History Alcohol intake: current Alcohol intake frequency: holidays/special occasions only Alcohol type: wine Substance/Drug Use: never Physical Exam Const: COMMON NORMALS: patient oriented x3 and alert HENMT: COMMON NORMALS: normocephalic HEAD & SCALP: normocephalic Neck/C-Spine: COMMON NORMALS: no meningeal signs Resp: COMMON NORMALS: normal respiratory effort GI: COMMON NORMALS: Soft to palpation PALPATION: Yes Soft to palpation and Yes Tenderness to palpation present (GI) (Epigastric) : COMMON NORMALS: Yes no CVA tenderness BLADDER/KIDNEY EXAM: Yes no CVA tenderness Back/Pelvis: COMMON NORMALS: no CVA tenderness Extremity: COMMON NORMALS: normal to inspection and no pedal edema Neuro: COMMON NORMALS: patient oriented x3 SENSORIUM/ORIENTATION: Yes alert MENINGEAL SIGNS: Yes no meningeal signs Skin: COMMON NORMALS: turgor normal GENERAL SKIN EXAM: turgor normal Course Vital Signs: Vital signs: Vital Signs Temperature 98.0 F 04/28/23 12:41 Pulse Rate 88 04/28/23 12:41 Respiratory Rate 16 04/28/23 12:41 Blood Pressure 150/99 04/28/23 12:41 Pulse Oximetry 99 04/28/23 12:41 Oxygen Delivery Me thod Room Air 04/28/23 12:41 MDM - Abdominal Pain Medical Decision Making 52-year-old female comes in today for complaints of epigastric pain radiating to the right side. Patient reports symptoms started first in her central chest and burning in nature as with reflux. Patient reports persistent symptoms now going to her abdomen. Patient appears nontoxic. Respirations are even lungs are clear to auscultation. Abdomen soft with epigastric right upper quadrant abdominal tenderness. Bowel sounds are present. No edema is noted in extremities. Vital signs are normal except for some mild elevation in blood pressure. Differential diagnosis includes but not limited to GERD, esophagitis, gastritis, pancreatitis, malingering. Lab and x-rays were unremarkable. Patient is stable. Patient most likely has developed some esophagitis secondary to the pill becoming stuck in her throat. Has dissolved and probably eroded the esophagus a little bit. No signs of severe illness or injury is noted. Recommended switching medication from omeprazole to pantoprazole for 2 weeks to see if we can help shut down acid a little bit more to allow healing. And the use of Carafate for discomfort. Patient reported understanding and agreed to plan. Lab Data 04/28/23 13:19 04/28/23 13:19 Labs/Radiology: Laboratory Results WBC 6.65 10^3/uL (3.29-11.43) 04/28/23 13:19 RBC 4.59 10^6/uL (3.85-5.65) 04/28/23 13:19 Hgb 13.20 g/dL (11.27-16.99) 04/28/23 13:19 Hct 40.8 % (36-47) 04/28/23 13:19 MCV 88.9 fl (85-98) 04/28/23 13:19 MCH 28.8 pg (27-33) 04/28/23 13:19 MCHC 32.4 g/dL (30-55) 04/28/23 13:19 RDW 12.7 % (12.1-15.1) 04/28/23 13:19 Plt Count 330 10^3/cmm (157-399) 04/28/23 13:19 MPV 8.9 fL (7.4-10.4) 04/28/23 13:19 Neut % (Auto) 62.0 % 04/28/23 13:19 Lymph % (Auto) 25.4 % 04/28/23 13:19 [place] % (Auto) 8.0 % 04/28/23 13:19 Eos % (Auto) 3.3 % 04/28/23 13:19 Baso % (Auto) 0.8 % 04/28/23 13:19 Neut # (Auto) 4.13 10^3/uL (1.8-7.7) 04/28/23 13:19 Lymph # (Auto) 1.7 10^3/uL (0.8-4.8) 04/28/23 13:19 [place] # (Auto) 0.5 10^3/uL (0.2-0.9) 04/28/23 13:19 Eos # (Auto) 0.2 10^3/uL (0.0-0.8) 04/28/23 13:19 Baso # (Auto) 0.1 10^3/uL (0.0-0.1) 04/28/23 13:19 Nucleated RBC % (auto) 0 % 04/28/23 13:19 Nucleated RBCs # 0.0 /100WBC 04/28/23 13:19 Sodium 136 mmol/L (136-145) 04/28/23 13:19 Potassium 4.2 mmol/L (3.5-5.1) 04/28/23 13:19 Chloride 98 mmol/L (98-107) 04/28/23 13:19 Carbon Dioxide 31 mmol/L (22-29) H 04/28/23 13:19 Anion Gap 11.2 (5-19) 04/28/23 13:19 BUN 10 mg/dL (6-20) 04/28/23 13:19 Creatinine 0.6 mg/dL (0.5-0.9) 04/28/23 13:19 GFR Calculation 105.8 mL/min (90-130) 04/28/23 13:19 Glucose 87 mg/dL (65-115) 04/28/23 13:19 Calculated Osmolality 280 mOsm/kg (285-295) L 04/28/23 13:19 Calcium 9.7 mg/dL (8.5-10.5) 04/28/23 13:19 Total Bilirubin 0.2 mg/dL (0.15-1.2) 04/28/23 13:19 AST 13 U/L (0-32) 04/28/23 13:19 ALT 8 U/L (0-33) 04/28/23 13:19 Alkaline Phosphatase 92 U/L (35-105) 04/28/23 13:19 Total Protein 7.7 g/dL (6.6-8.7) 04/28/23 13:19 Albumin 4.2 g/dL (3.5-5.2) 04/28/23 13:19 Globulin 3.5 g/dL (1.3-4.6) 04/28/23 13:19 Lipase 17 U/L (13-60) 04/28/23 13:19 Urine Color Yellow (Yellow) 04/28/23 13:49 Urine Appearance Clear (CLEAR) 04/28/23 13:49 Urine pH 5 (5-7) 04/28/23 13:49 Ur Specific Kimberly 1.015 (1.005-1.030) 04/28/23 13:49 Urine Protein Neg (Negative) 04/28/23 13:49 Urine Glucose (UA) Norm (Normal) 04/28/23 13:49 Urine Ketones Negative (Negative) 04/28/23 13:49 Urine Blood Neg (Negative) 04/28/23 13:49 Urine Nitrate Negative (Negative) 04/28/23 13:49 Urine Bilirubin Neg (Negative) 04/28/23 13:49 Urine Urobilinogen Norm mg/dL (Negative) 04/28/23 13:49 Ur Leukocyte Esterase Negative (Negative) 04/28/23 13:49 XR interpretation done by ED provider, pending radiology final review Discharge Plan Discharge Patient Disposition: Home Clinical Impression: Esophagitis Condition: Stable Prescriptions: New pantoprazole 40 mg tablet,delayed release (DR/EC) 40 mg PO DAILY Qty: 14 0RF sucralfate 1 gram tablet 1 g PO TID Qty: 15 0RF No Action hydroxyzine HCl 50 mg tablet 50 mg PO QID PRN (Reason: Anxiety) oxycodone-acetaminophen 7.5-325 mg tablet 1 tab PO TID PRN (Reason: Pain) spironolactone 50 mg tablet 50 mg PO QAM Chewable Multi Vitamin Tablet,Chewable 1 tab PO DAILY Chewable Fiber 1 gram Tablet,Chewable 1 g PO DAILY PRN (Reason: unknown) trazodone 50 mg tablet 50 mg PO BEDTIME baclofen 20 mg tablet 20 mg PO BEDTIME albuterol sulfate 90 mcg/actuation HFA aerosol inhaler 2 puff inhalation Q4H PRN (Reason: shortness of breath or wheezing) bupropion HCl 300 mg tablet extended release 24 hr 300 mg PO QAM Discharge Orders: Discharge ED (Routine); Ordered 04/28/23 Ordered By: Kris López Referrals: Joel Isaacs DO [Primary Care Provider] - Discharge Diet: Usual diet Discharge Activity: Increase activity as tolerated Patient Instructions: Esophagitis (ED) Activity Restrictions/Additional Instructions: Home and rest. Drink plenty of water and fluids. Hold omeprazole and take pantoprazole instead. Use sucralfate 3 times a day to help with back pain and discomfort. Drink plenty of water and fluids. Avoid acidic or spicy foods. Follow-up with primary care for further evaluation and treatment. Return to ER for new concerns or worsening symptoms such as blood in vomit or stool, high fever, or shortness of breath. Coding Level of Care Code ED Plant And Instrument Engineer for Palak Kirby
[2023-04-28 13:35] LABS: Basophils # 0.1 10^3/uL (0.0-0.1); Basophils % 0.8 %; Eosinophils # 0.2 10^3/uL (0.0-0.8); Eosinophils % 3.3 %; Hematocrit 40.8 % (36-47); Lymphocytes # 1.7 10^3/uL (0.8-4.8); Lymphocytes % 25.4 %; Mean Corpuscular HGB Conc 32.4 g/dL (30-55); Mean Corpuscular Hemoglobin 28.8 pg (27-33); Mean Corpuscular Volume 88.9 fl (85-98); Mean Platelet Volume 8.9 fL (7.4-10.4); Monocytes # 0.5 10^3/uL (0.2-0.9); Neutrophils # 4.13 10^3/uL (1.8-7.7); Nucleated Red Blood Cells % 0 %; Platelet Count 330 10^3/cmm (157-399); Red Blood Count 4.59 10^6/uL (3.85-5.65); Red Cell Distribution Width 12.7 % (12.1-15.1); White Blood Count 6.65 10^3/uL (3.29-11.43)
--- NOTE | 2023-04-28 13:39 | PC.PHAR ---
pt states she takes care of her own medications-pt states she takes baclofen 20mg hs ext shows last filled 20mg qid prn 03/25/23 90d/s-pt states she has an old for hydroxyzine hcl 50mg qid prn ext doesnt show when last filled-
[2023-04-28 13:54] LABS: Add Urine Microscopic? NO; Charge for UA Resulting for Rev
[2023-04-28 13:57] LABS: Alanine Aminotransferase 8 U/L (0-33); Albumin Level 4.2 g/dL (3.5-5.2); Alkaline Phosphatase 92 U/L (35-105); Anion Gap 11.2 (5-19); Aspartate Amino Transferase 13 U/L (0-32); Blood Urea Nitrogen 10 mg/dL (6-20); Calcium 9.7 mg/dL (8.5-10.5); Carbon Dioxide 31 mmol/L (22-29); Chloride 98 mmol/L (98-107); Globulin 3.5 g/dL (1.3-4.6); Glomerular Filtration Rate 105.8 mL/min (90-130); Glucose 87 mg/dL (65-115); Lipase 17 U/L (13-60); Osmolality Calculated 280 mOsm/kg (285-295); Potassium 4.2 mmol/L (3.5-5.1); Sodium 136 mmol/L (136-145); Total Bilirubin 0.2 mg/dL (0.15-1.2); Total Protein 7.7 g/dL (6.6-8.7)
[2023-04-28 14:17] LABS: Bilirubin Urine Neg (Negative); Blood Urine Neg (Negative); Glucose Urine UA Norm (Normal); Ketones Urine Negative (Negative); Nitrate Urine Negative (Negative); Protein Urine Neg (Negative); Specific Gravity, Urine 1.015 (1.005-1.030); Urine Appearance Clear (CLEAR); Urine Color Yellow (Yellow); pH Urine 5 (5-7)
[2023-04-28 14:18] LABS: Leukocyte Esterase Urine Negative (Negative); Urobilinogen Urine Norm (Negative)
== END 2023-04-28 14:33 | disposition home or self-care (01) ==
PROVIDERS: Emergency Provider Nurse Practitioner Family; PCP Family Medicine
DX: K20.90 Esophagitis, unspecified without bleeding (principal)
CPT/HCPCS: 36415; 74022; 80053; 81003; 83690; 85025; 99284

== ENCOUNTER → 2023-05-10 08:33 | Outpatient (BNVA) | payer OTHER, SELFPAY | PROVIDERS: PCP Family Medicine; Visit Provider Family Medicine | DX: E03.9 Hypothyroidism, unspecified (principal) | CPT/HCPCS: 84443 ==

== ENCOUNTER → 2023-05-31 16:49 | Outpatient (BNVA) | payer OTHER, SELFPAY | PROVIDERS: PCP Family Medicine; Visit Provider Family Medicine | DX: M79.642 Pain in left hand (principal) | CPT/HCPCS: 73130 ==

== ENCOUNTER → 2023-10-07 15:06 | Outpatient (BNVA) | payer OTHER, SELFPAY | PROVIDERS: PCP Family Medicine; Visit Provider Family Medicine | DX: R79.89 Other specified abnormal findings of blood chemistry (principal); R76.8 Other specified abnormal immunological findings in serum; R53.83 Other fatigue; R50.9 Fever, unspecified; R20.9 Unspecified disturbances of skin sensation; M79.7 Fibromyalgia; E03.9 Hypothyroidism, unspecified | CPT/HCPCS: 80053; 84443; 85025; 86140; 86160; 86162; 86235; 86255; 86376; 86618; 86666; 86757 ==

== ENCOUNTER 2023-10-15 13:26 | Outpatient (CLI) | payer OTHER, SELFPAY ==
--- NOTE | 2023-10-15 13:35 | MR_ITS ---
WS: [id number] MRI LUMBAR SPINE NONCONTRAST TECHNIQUE: Sagittal T1, T2 and STIR imaging. Axial T1 and T2 imaging. CLINICAL INFORMATION: COMPARISON: MRI 07/12/2020 FINDINGS: Mild lumbar curve. No acute compression. Chronic anterior wedging of T12 unchanged. L1-L2: Normal. L2-L3: Mild facet arthropathy. Spinal canal and foramen are patent. L3-L4: Mild annular bulging. Small LEFT foraminal protrusion with mild LEFT foraminal narrowing and s light impingement on the exiting L3 nerve root. RIGHT foramen is patent. Moderate facet arthropathy. L4-L5: Mild annular bulging. Narrowing of the LEFT greater than RIGHT subarticular recess. LEFT therese inal protrusion impinges the exiting LEFT L4 nerve root with mild to moderate LEFT foraminal narrowin g. RIGHT foramen is patent. Moderate facet arthropathy. L5-S1: Mild annular bulging. Mild facet arthropathy. Spinal canal and foramen are patent. Visualized pelvic bony structures: Normal. Paravertebral soft tissues: Normal. Incidental slightly low-lying cerebellar tonsils. MR/MR lumbar spine wo con* [id number] IMPRESSION: 1. Chronic anterior wedging T12 unchanged. 2. LEFT foraminal protrusion L3-4 with slight impingement on the exited L3 ner ve root progressed compared to previous. 3. Annular bulging L4-5 with impingement on the LEFT subarticular recess and t raversing LEFT L5 nerve root. This is similar to previous. 4. LEFT foraminal protrusion impinges the exiting L4 nerve root with mild to m oderate LEFT foraminal narrowing. This appears progressed compared to previous. 5. Moderate facet arthropathy L3-L4 and L4-L5.
== END 2023-10-15 13:27 | disposition home or self-care (01) ==
LOC: RAD 13:27
PROVIDERS: PCP Family Medicine; Visit Provider Nurse Practitioner Family
DX: M43.8X4 Other specified deforming dorsopathies, thoracic region (principal); M41.86 Other forms of scoliosis, lumbar region; M47.896 Other spondylosis, lumbar region; M51.26 Other intervertebral disc displacement, lumbar region; M47.897 Other spondylosis, lumbosacral region; M51.37 Other intervertebral disc degeneration, lumbosacral region
CPT/HCPCS: 72148

== ENCOUNTER → 2023-11-25 09:33 | Outpatient (BNVA) | payer OTHER, SELFPAY | PROVIDERS: PCP Family Medicine; Visit Provider Orthopaedic Surgery | DX: Z01.818 Encounter for other preprocedural examination (principal); M48.062 Spinal stenosis, lumbar region with neurogenic claudication; M54.50 Low back pain, unspecified; G89.29 Other chronic pain | CPT/HCPCS: 36415; 72110; 80053; 81003; 81015; 85025 ==

== ENCOUNTER 2023-12-24 07:20 | Day surgery (SDC) | payer OTHER, SELFPAY ==
[2023-12-24] VITALS (13 sets, daily range): BP systolic 103–137; BP diastolic 84–96; PULSE 71–85; RESP 12–18; TEMP 36.4–36.7; O2SAT 95–100; BMI 25.8
[2023-12-24] MEDS: sodium chloride 0.9% 1,000 ML 30 ML IV (07:52)
[2023-12-24] MEDS: scopolamine 1.5 Patch 1 PATCH TRANSDERMA (08:06)
--- NOTE | 2023-12-24 08:08 | ANES.PREANE2 ---
Pre-Anesthetic Assessment Height/Weight: Height 1.6 m Weight 66.224 kg Temp Pulse Resp BP Pulse Ox O2 Del Method 98.1 F 80 18 103/85 95 Room Air 12/24/23 07:27 12/24/23 07:27 12/24/23 07:27 12/24/23 07:27 12/24/23 07:27 12/24/23 07:41 Preop Diagnosis: Lumbar stenosis with neurogenic claudication Operation Date: 12/24/23 08:50 Proposed Procedures p Lumbar Spine Decompression Lumbar Decompression(Not Applicable) - Sergio Morin, Familial anesthetic complications: None Was Beta Mariam taken within 24 hours: N/A Was Clonidine taken within 24 hours: N/A Last intake: Intake Last Liquid Date 12/23/23 Last Liquid Time 21:00 Last Solid Date 12/23/23 Last Solid Time 21:00 Social No alcohol and No tobacco Exam alert, oriented x 3, clear to auscultation bilaterally and regular rate & rhythm Airway Mallampati: Class I Dentition: full Anesthetic Plan ASA status: 1 Anesthesia: General Risk of > 500 ml blood loss (7ml/kg in children): No Medications/Allergies Home Medications Medication Instructions Recorded Confirmed Last Taken Type hydroxyzine HCl 50 mg tablet 50 mg PO QID PRN Anxiety 06/01/19 12/24/23 04/23/23 History 25 mg albuterol sulfate 90 mcg/actuation 2 puff inhalation Q4H PRN 04/28/23 12/24/23 Unknown History aerosol inhaler shortness of breath or wheezing trazodone 50 mg tablet 50 mg PO BEDTIME 04/28/23 12/24/23 12/22/23 History oxycodone-acetaminophen 10 mg-325 0.5 tab PO TID Arthritis & 05/31/23 12/24/23 12/24/23 History mg tablet Fibromyalgia spironolactone 50 mg tablet 100 mg PO QAM 05/31/23 12/24/23 12/23/23 History L.acid,par,plant,rham-B.anim,bif,brev,inf,long 1 cap PO DAILY 12/10/23 12/24/23 12/23/23 History 30 billion cell capsule (Probiotic Digestive Health) apple cider vinegar 500 mg tablet 500 mg PO DAILY 12/10/23 12/24/23 12/23/23 History elderberry fruit 350 mg capsule 350 mg PO DAILY 12/10/23 12/24/23 12/23/23 History baclofen 20 mg tablet 20 mg PO DAILY 12/23/23 12/24/23 12/22/23 History bupropion HCl 300 mg 24 hr tablet, 300 mg PO DAILY 12/23/23 12/24/23 12/24/23 History extended release Allergies Allergy/AdvReac Type Severity Reaction Status Date / Time oxycodone [From OxyContin] Allergy ADR-Anxiety Verified 12/24/23 07:31 prochlorperazine Allergy ADR-Nightma Verified 12/24/23 07:31 [From Compazine] re steri strips Allergy ALGY-Bliste Uncoded 12/24/23 07:31 r Current Medications Generic Name Dose Route Start Last Admin Trade Name Timmyq PRN Reason Stop Dose Admin Sodium Chloride 1,000 mls @ 30 mls/hr 12/24/23 07:30 12/24/23 07:52 Sodium Chloride 0.9% IV 12/25/23 07:29 30 mls/hr .Q24H KATRIN Administration PFSH Anesthesia Medical History Acromioclavicular joint arthritis Chronic low back pain Fibromyalgia syndrome Occasional cigarette smoker Encounter for long-term opiate analgesic use Low back pain of over 3 months duration Opioid contract exists Surgical History Hx of sinus surgery Hx of hysterectomy Hx of cholecystectomy Hx of appendectomy Hx of laparoscopy scar tissue Hx of spinal surgery 2009 Green removed spinal tumor Family History Unknown Cancer Lung Mother Cancer Breast Cancer Social History Smoking and tobacco/nicotine status: never used tobacco/nicotine Alcohol intake: current Alcohol intake frequency: holidays/special occasions only Alcohol type: wine Substance/Drug Use: never Data Anesthesia Cardiac Studies: No Data to Display
--- NOTE | 2023-12-24 08:14 | XR_ITS ---
WS: [id number] XR lumbar spine 2-3V* [id number] REASON FOR EXAM: OR PIC FINDINGS: Surgical instrument overlies the right L4-L5 disc space. XR/XR lumbar spine 2-3V* [id number] IMPRESSION: Lumbar level localization and surgery as above.
--- NOTE | 2023-12-24 08:17 | W.PM.OPSUD ---
Surgery/Procedure H&P Update DATE OF PROCEDURE: December 24, 2023 DATE H&P PERFORMED: 12/10/23 H&P UPDATE INFORMATION: I have reviewed H&P completed within last 30 days, I have examined patient prior to procedure and No changes to prior documentation PREOP DIAGNOSIS: Lumbar stenosis with neurogenic claudication PLANNED PROCEDURE: Operation Date: 12/24/23 08:50 Proposed Procedures p Lumbar Spine Decompression Lumbar Decompression(Not Applicable) - Sergio Morin DO
[2023-12-24] MEDS: ceFAZolin 2,000 mg SDV 2000 MG IVP (08:35)
[2023-12-24] MEDS: lidocaine-epi 1% 20 mL INJ INJECTION (09:17)
--- NOTE | 2023-12-24 09:49 | PM.OP ---
Operative Report Date of procedure: December 24, 2023 Pre-op diagnosis: Lumbar stenosis with neurogenic claudication Post-op diagnosis: same Procedure done: L4-5 laminectomy with partial facetectomy Surgeon: Sergio Morin DO Estimated blood loss (mL): 5 Procedure: L4-5 laminectomy with partial facetectomy Patient is brought to the operative suite. After undergoing anesthesia they are placed in the prone position. All areas of impingement are well padded. Patient is then prepped and draped in the normal sterile fashion. A skin incision is made over the L4/5 level. This is confirmed under c-arm guidance. A series of dilators are passed and the tubular retractor is docked on the L4 lamina. A bovie is used to clear the soft tissue off the lamina and the L 4/5 facet joint. A high speed tony is then used to perform the laminectomy and take down the medial aspect of the L 4/5 facet joint. A kerrison rongeure was then used to take down the remaining lamina and smooth the edge of the laminectomy up to the point where the ligamentum flavum attaches. Attention was then brought to the medial aspect of the facet joint. The remaining medial aspect of the superior and inferior aspect of the facet joint were taken down with the kerrison from the pedicle of L4 to L 5. The facet joint had significant hypertrophy. Attention was then brought to the Ligamentum Flavum. The ligament was taken down from the lamina of L4 to L5 and out medially to the remaining facet joint. The ligament was thick. The dura was then exposed. The dura was in good repair. The L4/5 nerve was then traced with a curette out the L4/5 foramen and found to be adequately decompressed. The L5 nerve was traced with a curette around the L5 pedicle. The lateral recess was opened with a kerrison helping to further decompress the L5 nerve. Wound is then irrigated copiously with saline and surgiflo is used to stop any bleeding. The tubular retractor is removed and the wound is closed with vicryl and monocryl suture. Glue is then used to protect the wound. A sterile dressing is then placed. Patient was then placed in the supine position and transferred to the PACU in stable condition.
[2023-12-24] MEDS: morphine 4 mg/mL SDV 1 mL IVP (10:34)
[2023-12-24] MEDS: ondansetron 2 mg/ML SDV 2 mL 4 MG IVP (10:39)
[2023-12-24] MEDS: HYDROcodone-acetaminophen 10-325 mg Tablet 1 TAB PO (11:07)
--- NOTE | 2023-12-24 11:20 | ANE.PACU2 ---
Inpatient post-anesthesia follow up: Airway intact: Yes Vital signs: Temperature 97.6 F Pulse Rate 75 Respiratory Rate 16 Blood Pressure 134/93 Pulse Oximetry 99 Oxygen Delivery Me thod Room Air Oxygen Flow Rate Fraction of Inspir ed Oxygen Hydration adequate: Yes Nausea and vomiting: No Pain level: 1 Mental status: Baseline
== END 2023-12-24 11:20 | disposition home or self-care (01) ==
PROVIDERS: PCP Family Medicine; Visit Provider Orthopaedic Surgery
PROC: (CPT 63005; principal; 2023-12-24 08:40)
DX: M48.062 Spinal stenosis, lumbar region with neurogenic claudication (principal)
CPT/HCPCS: 63047; 72100; J0690; J1100; J2250; J2270; J2405; J3010; J3490; J7030

== ENCOUNTER → 2024-02-03 15:28 | Outpatient (BNVA) | payer OTHER, SELFPAY | PROVIDERS: PCP Family Medicine; Visit Provider Orthopaedic Surgery | DX: Z98.890 Other specified postprocedural states (principal); M54.2 Cervicalgia | CPT/HCPCS: 72050 ==

== ENCOUNTER → 2024-02-11 16:22 | Outpatient (BNVA) | payer OTHER, SELFPAY | PROVIDERS: PCP Family Medicine; Visit Provider Emergency Medicine | DX: R39.9 Unspecified symptoms and signs involving the genitourinary system (principal) | CPT/HCPCS: 81000; 87086 ==

== ENCOUNTER → 2024-02-14 10:07 | Outpatient (BNVA) | payer OTHER, SELFPAY | PROVIDERS: Absent Provider Psychiatry & Neurology Neurology; PCP Family Medicine; Referring Provider Family Medicine; Visit Provider Psychiatry & Neurology Neurology | DX: G43.909 Migraine, unspecified, not intractable, without status migrainosus (principal) | CPT/HCPCS: 36415; 82306; 82607; 82746; 83090; 83921 ==

== ENCOUNTER 2024-02-25 15:50 | Outpatient (CLI) | payer OTHER, SELFPAY ==
--- NOTE | 2024-02-25 16:00 | MR_ITS ---
WS: [id number] MRI CERVICAL SPINE NONCONTRAST TECHNIQUE: Sagittal T1, T2 and STIR imaging. Axial T2, gradient, and fiesta imaging. CLINICAL INFORMATION: cervical pain COMPARISON: None. FINDINGS: Straightening the normal cervical lordosis. Cord signal is normal. No high-grade central canal stenos is. C2-C3: Mild facet arthropathy. Spinal canal and foramen are patent. C3-C4: Mild disc osteophytic ridging. Mild facet arthropathy. Spinal canal and foramen are patent. C4-C5: Mild disc osteophyte complex with endplate ridging. Mild central canal stenosis. Mild to moder ate LEFT bony foraminal narrowing similar to previous. RIGHT foramen is patent. Mild facet arthropath y. C5-C6: Mild disc osteophyte complex with endplate ridging. Mild central canal stenosis. Mild to moder ate LEFT bony foraminal narrowing appears slightly progressed. RIGHT foramen is patent. Mild facet ar thropathy. C6-C7: Disc osteophyte complex eccentric to the LEFT. Moderate LEFT bony foraminal narrowing similar to previous. Moderate facet arthropathy. C7-T1: Mild disc bulging with a shallow central protrusion. Spinal canal and foramen are patent. Tiny central protrusions in the upper thoracic spine worse at T2-3. Small RIGHT thyroid nodule partially visualized measuring 6 mm. MR/MR cervical spin wo con* [id number] IMPRESSION: 1. Straightening of the normal cervical lordosis. Cord signal is normal. No hi gh-grade central canal stenosis. 2. Mild central canal stenosis C4-C6 with disc osteophyte complexes. 3. Moderate LEFT C4-5 bony foraminal narrowing. 4. Mild to moderate LEFT C5-C6 bony foraminal narrowing appears slightly progr essed. 5. Similar-appearing moderate LEFT C6-7 bony foraminal narrowing
== END 2024-02-25 15:51 | disposition home or self-care (01) ==
LOC: RAD 15:50
PROVIDERS: PCP Family Medicine; Visit Provider Orthopaedic Surgery
DX: M99.61 Osseous and subluxation stenosis of intervertebral foramina of cervical region (principal); M25.78 Osteophyte, vertebrae
CPT/HCPCS: 72141

== ENCOUNTER 2024-03-15 15:38 | Outpatient (CLI) | payer OTHER, SELFPAY ==
--- NOTE | 2024-03-15 16:00 | MR_ITS ---
WS: [id number] MRI BRAIN WITH AND WITHOUT CONTRAST HISTORY: I72.9 - Aneurysm of unspecified site COMPARISON: None available. TECHNIQUE: Multiplanar imaging performed through the brain with MultiHance 14 ml's IV. No acute infarcts are seen. Neumann-white matter differentiation is well preserved. No hippocampal atrop hy. No prior infarct. Focal hemosiderin in the superior RIGHT parietal vertex or extra-axial. Low signal on all sequences w ith out significant enhancement. I suspect this is probably a small vascular malformation with hemosi emi or calcified meningioma. Area of concern measures 6 x 7 x 5 mm. No associated edema or hemorrha ge. There is very slight loss of the volume of the adjacent cortex. Ventricles and extra-axial spaces are normal. Clivus and pituitary gland are normal. Visualized posterior fossa and brainstem are also normal. Postcontrast images are negative for masses or vascular malformations. Dural venous sinuses are normal. Paranasal sinuses: Well aerated with no significant disease. Mastoid air cells: Normal. Calvarium and scalp: Normal. MR/MR head wo/w con [id number] IMPRESSION: 1. No acute infarct or significant volume loss. No prior ischemic disease. 2. Focal hemosiderin measuring 6 x 7 x 5 mm centered in the RIGHT parietal cor ángel at the vertex. 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 Due to small si ze and position this could be an extra-axial meningioma but vascular malformati on is more likely. No associated edema or mass effect. 3. Normal hippocampal formations.
[2024-03-15] MEDS: gadobenate dimeglumine 20 mL vial 14 ML IV (16:38)
--- NOTE | 2024-03-15 16:45 | MR_ITS ---
WS: [id number] MRA ANGIOGRAPHY [place] OF [place] HISTORY: I72.9 - Aneurysm of unspecified site COMPARISON: None available. TECHNIQUE: 3-D MR angiography is performed of the [place] of [place]. All images are reviewed including source images. Distal vertebral and basilar arteries are intact with no significant stenosis or plaque. Posterior ce rebral arteries are normal course and caliber. Posterior communicating arteries are both patent but s mall caliber. Intracranial portion of the internal carotid arteries are normal course and caliber. No significant a therosclerosis, stenosis or aneurysm identified. Middle and anterior cerebral arteries are both paten t with no significant disease. Anterior communicating artery is also normal. MR/MR angio head wo con [id number] IMPRESSION: Normal MRA [place] of [place].
== END 2024-03-15 15:39 | disposition home or self-care (01) ==
LOC: RAD 15:39
PROVIDERS: PCP Family Medicine; Visit Provider Psychiatry & Neurology Neurology
DX: Q28.2 Arteriovenous malformation of cerebral vessels (principal)
CPT/HCPCS: 70544; 70553

== ENCOUNTER 2024-04-25 08:57 | Outpatient (CLI) | payer OTHER, SELFPAY ==
--- NOTE | 2024-04-25 09:00 | MM_ITS ---
WS: [id number] BILATERAL 3D TOMOSYNTHESIS DIGITAL SCREENING MAMMOGRAPHY WITH CAD CLINICAL INFORMATION: SCREENING HISTORY: Screening mammogram. No current complaints. COMPARISON: New baseline TECHNIQUE: Bilateral CC and MLO views. FINDINGS: The breasts are composed of heterogeneous fibroglandular density tissue, which can limit the detectio n of small underlying mass lesions. No suspicious mass, asymmetry, calcifications, or architectural d istortion. No evidence of malignancy. MM/MM [facility] tomosynthesis [id number] IMPRESSION: DENSITY: The breasts are heterogeneously dense, which may obscure small masses. BI-RADS: 1 - Negative FOLLOW UP: 1 Year Follow-up Recommend return to annual screening mammography.
== END 2024-04-25 08:58 | disposition home or self-care (01) ==
PROVIDERS: PCP Family Medicine; Visit Provider Family Medicine
DX: Z12.31 Encounter for screening mammogram for malignant neoplasm of breast (principal); R92.333 Mammographic heterogeneous density, bilateral breasts
CPT/HCPCS: 77063; 77067

== ENCOUNTER 2024-05-24 14:31 | Emergency (ER) | payer OTHER, SELFPAY ==
[2024-05-24 14:52] VITALS: BP 156/95; PULSE 89; RESP 17; TEMP 36.6; O2SAT 97; BMI 24.7
--- NOTE | 2024-05-24 15:10 | CTR_ITS ---
PROCEDURE INFORMATION: Exam: CT Lumbar Spine Without Contrast Exam date and time: 05/24/2024 3:33 PM Age: 53 years old Clinical indication: Weakness; Prior surgery; Surgery date: 1-6 months; Surgery type: Spine; Additional info: Severe back pain, HX of surgery, can't feel legs TECHNIQUE: Imaging protocol: Computed tomography of the lumbar spine without contrast. Radiation optimization: All CT scans at this facility use at least one of these dose optimization techniques: automated exposure control; mA and/or kV adjustment per patient size (includes targeted exams where dose is matched to clinical indication); or iterative reconstruction. COMPARISON: MR lumbar spine wo con* [id number] 10/15/2023 1:45 PM RADIATION DOSE METRICS: Total DLP (mGy-cm): 481.06 FINDINGS: Bones/joints: Positive Schmorl's node at the superior endplate of T12 vertebra. L1-L2: Mild disc bulge. No severe spinal canal stenosis. No significant neural foraminal narrowing. L2-L3: Mild disc bulge. No severe spinal canal stenosis. No significant neural foraminal narrowing. L3-L4: Disc bulge. No spinal canal stenosis. Moderate bilateral neural foraminal narrowing. L4-L5: Disc bulge. No spinal canal stenosis. Moderate to severe bilateral neural foraminal narrowing. L5-S1: Disc bulge. No spinal canal stenosis. Mild bilateral neural foraminal narrowing. Gallbladder and biliary ducts: Cholecystectomy clips. Soft tissues: Unremarkable. CT/CT lumbar spine wo con* [id number] IMPRESSION: Multilevel degenerative disc disease with neural foraminal narrowing. Moderate bilateral neural foraminal narrowing at L3-L4, moderate to severe bilateral L4-L5 and mild bilateral at L5-S1.
[2024-05-24] MEDS: dexamethasone 10 mg/mL INJ IM (15:32)
[2024-05-24] MEDS: orphenadrine 30 mg/mL Inj 2 mL 60 MG IM (15:32)
[2024-05-24] MEDS: ketorolac 60 mg/2 mL INJ IM (15:32)
--- NOTE | 2024-05-24 15:34 | W.ED.BACK ---
HPI - Back Pain/Injury General: Chief Complaint: Back Pain/Injury Stated Complaint: lower back pain Time Seen by Provider: 05/24/24 14:52 Source: patient Mode of arrival: ambulatory Limitations: no limitations History of Present Illness: Patient is a 53-year-old female with past medical history of chronic low back pain, fibromyalgia, and long-term opiate use who is presenting to the emergency department with severe low back pain since Wednesday. Denies any trauma, states that this was caused after moving weird. She is very tearful during examination, refuses to move at all secondary to reporting it being painful. She takes oxycodone daily for pain and states that this has not been helping. She is noting diffuse numbness down both legs, and states that the pain wraps around my waist like a belt. She denies any bowel or bladder incontinence or saddle anesthesia. She does note that she has had 2 previous back surgeries, most recently last fall where she had a decompression. Does not report any fevers, trauma, unexplained weight loss, neurological symptoms, IVDU, steroid use, or history of cancer. MD elicited complaint: back pain Pertinent past history: prior back pain and other (History of back surgery) Onset (ago): day(s) Timing: constant Severity: severe Similar Symptoms Previously: Yes Quality: sharp Location: lumbar spine Radiation: left leg below the knee and right leg below the knee Exacerbating factors: movement Relieving factors: none Context: turning/twisting Associated symptoms: Reports difficulty walking; Deny abdominal pain, fecal incontinence, fever(s) or syncope Related Data Home Medications ?Medication ?Instructions ?Recorded ?Confirmed hydroxyzine HCl 50 mg tablet 50 mg PO QID PRN Anxiety 06/01/19 05/08/24 albuterol sulfate 90 mcg/actuation 2 puff inhalation Q4H PRN 04/28/23 05/08/24 aerosol inhaler shortness of breath or wheezing spironolactone 50 mg tablet 100 mg PO QAM 05/31/23 05/08/24 L.acid,par,plant,rham-B.anim,bif,brev,inf,long 1 cap PO DAILY 12/10/23 05/08/24 30 billion cell capsule (Probiotic Digestive Health) apple cider vinegar 500 mg tablet 500 mg PO DAILY 12/10/23 05/08/24 elderberry fruit 350 mg capsule 350 mg PO DAILY 12/10/23 05/08/24 baclofen 20 mg tablet 20 mg PO DAILY 12/23/23 05/08/24 bupropion HCl 300 mg 24 hr tablet, 300 mg PO DAILY 12/23/23 05/08/24 extended release oxycodone 5 mg capsule 5 mg PO Q8H PRN 02/14/24 05/08/24 Previous Rx's ?Medication ?Instructions ?Recorded cefdinir 300 mg capsule 300 mg PO BID 10 days #20 caps 02/11/24 ondansetron 8 mg disintegrating 8 mg PO Q8H PRN nausea and 02/11/24 tablet vomiting 5 days #15 tabs phenazopyridine 200 mg tablet 200 mg PO Q8H PRN pain 9 doses #9 02/11/24 (Pyridium) tabs trazodone 50 mg tablet 50 mg PO BEDTIME #90 tabs 03/17/24 galcanezumab-gnlm 120 mg/mL 120 mg SUBCUT ONCE #1 mL 05/08/24 subcutaneous pen injector (Emgality Pen) galcanezumab-gnlm 120 mg/mL 240 mg (2 mL) SUBCUT ONCE #2 mL 05/08/24 subcutaneous pen injector (Emgality Pen) prednisone 20 mg tablet 60 mg (3 x 20 mg) PO ONCE 5 days 05/24/24 #15 tabs Allergies Allergy/AdvReac Type Severity Reaction Status Date / Time adhesive tape Allergy ALGY-Bliste Verified 05/24/24 14:56 r oxycodone (From OxyContin) Allergy ADR-Anxiety Verified 05/24/24 14:56 prochlorperazine (From Allergy ADR-Nightma Verified 05/24/24 14:56 Compazine) re Review of Systems General: Reports: 10 or more systems reviewed and unremarkable except in HPI and below Const: Reports: other (denies trauma); Denies: fever(s), change in weight or night sweats Card: Denies: chest pain, lightheadedness or syncope Resp: Denies: dyspnea GI: Denies: abdominal pain or fecal incontinence : Denies: urinary incontinence Musc: Reports: back pain and extremity pain; Denies: neck pain or extremity swelling Skin/Breast: Denies: rash or skin pain Neuro: Reports: numbness in extremities, weakness in extremities and difficulty walking; Denies: headache(s), sensory changes, lack of coordination, frequent falls or involuntary movements PFSH ED PFSH: Medical History Acromioclavicular joint arthritis Chronic low back pain Fibromyalgia syndrome Occasional cigarette smoker Encounter for long-term opiate analgesic use Low back pain of over 3 months duration Opioid contract exists Surgical History Hx of sinus surgery Hx of hysterectomy Hx of cholecystectomy Hx of appendectomy Hx of laparoscopy scar tissue Hx of spinal surgery 2009 Green removed spinal tumor Family History Unknown Cancer Lung Mother Cancer Breast Cancer Social History Smoking and tobacco/nicotine status: never used tobacco/nicotine Alcohol intake: current Alcohol intake frequency: holidays/special occasions only Alcohol type: wine Substance/Drug Use: never Physical Exam Const: COMMON NORMALS: patient oriented x3, no limitations and alert OTHER: Tearful and anxious Resp: COMMON NORMALS: normal respiratory effort, No retractions, No use of accessory muscles and clear to auscultation bilaterally AUSCULTATION: clear to auscultation bilaterally Cardio: COMMON NORMALS: regular rate, regular rhythm, S1 normal heart sound present and S2 normal heart sound present RATE: regular rate RHYTHM: regular rhythm HEART SOUNDS: S1 normal heart sound present and S2 normal heart sound present Back/Pelvis: OTHER: She refuses to participate in any range of motion exercises secondary to pain. Easily reproducible tenderness to very light palpation to the lumbar spine, no signs of trauma or deformity. No bruising. Refuses to participate in straight leg raise testing bilaterally. Extremity: COMMON NORMALS: normal to inspection and full ROM Neuro: COMMON NORMALS: patient oriented x3, moves all extremities, no focal motor deficits, no sensory deficits noted and gait normal SENSORIUM/ORIENTATION: Yes alert OTHER: L3, L4, L5, and S1 nerve sensations intact, however stating both sides are diminished. Knee jerk reflex hyporeflexic bilaterally Skin: COMMON NORMALS: no rashes or lesions noted GENERAL SKIN EXAM: no rashes or lesions noted Course Vital Signs: Vital signs: Vital Signs Temperature 97.9 F 05/24/24 14:52 Pulse Rate 89 05/24/24 14:52 Respiratory Rate 17 05/24/24 14:52 Blood Pressure 156/95 05/24/24 14:52 Pulse Oximetry 97 05/24/24 14:52 Oxygen Delivery Me thod Room Air 05/24/24 14:52 MDM - Back Pain/Injury Medical Decision Making Patient presented with lower back pain beginning Wednesday after bending down to tie her shoes. She has history of previous back surgeries as well as fibromyalgia, and is a long-term opiate user for pain control. States that her oxycodone had not been helping. She had no red flag back symptoms to report, on exam there was some hyporeflexia and she was endorsing diminished sensation to light touch bilaterally. On CT there was evidence of degenerative disc disease, no cauda equina syndrome or other emergent surgical findings. However this does explain her pain with the foraminal narrowing noted, she had only minor relief of pain from Toradol, Norflex, and Decadron. I will refer her back to Ortho/spine for surgical evaluation and further workup, encouraged her to return if she does have any of the discussed red flag findings associated with back pain. Also encouraged her to start using heat, she had noted that she was only using ice. Also encouraged her to mix and ibuprofen for the anti-inflammatory properties. All other questions and concerns addressed, she verbalized understanding. Discussed case with Dr. Casiano. Labs Radiology Impressions Lumbar Spine CT 05/24/24 15:10 IMPRESSION: Multilevel degenerative disc disease with neural foraminal narrowing. Moderate bilateral neural foraminal narrowing at L3-L4, moderate to severe bilateral L4-L5 and mild bilateral at L5-S1. Laboratory Results Urine Color Yellow (Yellow) 05/24/24 16:00 Urine Appearance Clear (CLEAR) 05/24/24 16:00 Urine pH 7.0 (5-7) 05/24/24 16:00 Ur Specific [place] 1.008 (1.005-1.030) 05/24/24 16:00 Urine Protein Negative (Negative) 05/24/24 16:00 Urine Glucose (UA) Negative (Normal) 05/24/24 16:00 Urine Ketones Negative (Negative) 05/24/24 16:00 Urine Blood Negative (Negative) 05/24/24 16:00 Urine Nitrate Negative (Negative) 05/24/24 16:00 Urine Bilirubin Negative (Negative) 05/24/24 16:00 Urine Urobilinogen 0.2 mg/dL (Negative) 05/24/24 16:00 Ur Leukocyte Esterase Trace (Negative) A 05/24/24 16:00 Urine RBC 0-2 /hpf (0-2) 05/24/24 16:00 Urine WBC 0-5 /hpf (0-5) 05/24/24 16:00 Ur Squamous Epith Cells 0-5 /hpf (0-5) 05/24/24 16:00 Amorphous Sediment Not Reportable 05/24/24 16:00 Urine Bacteria None seen /hpf (NONE) 05/24/24 16:00 Hyaline Casts 0-4 /lpf H 05/24/24 16:00 All radiology interpretation(s) finalized by discharge Discharge Plan Discharge Patient Disposition: Home Clinical Impression: DDD (degenerative disc disease) Qualifiers: Spinal region: lumbar Disc-related pain type: discogenic back pain and lower extremity pain Qualified Code(s): M51.362 - Other intervertebral disc degeneration, lumbar region with discogenic back pain and lower extremity pain Condition: Stable Prescriptions: New prednisone 20 mg tablet 60 mg PO ONCE 5 Days Qty: 15 0RF No Action hydroxyzine HCl 50 mg tablet 50 mg PO QID PRN (Reason: Anxiety) oxycodone 5 mg capsule 5 mg PO Q8H PRN apple cider vinegar 500 mg tablet 500 mg PO DAILY elderberry fruit 350 mg capsule 350 mg PO DAILY Probiotic Digestive Health 30 billion cell capsule 1 cap PO DAILY phenazopyridine [Pyridium] 200 mg tablet 200 mg PO Q8H PRN (Reason: pain) Qty: 9 0RF ondansetron 8 mg tablet,disintegrating 8 mg PO Q8H PRN (Reason: nausea and vomiting) 5 Days Qty: 15 0RF cefdinir 300 mg capsule 300 mg PO BID 10 Days Qty: 20 0RF trazodone 50 mg tablet 50 mg PO BEDTIME Qty: 90 1RF Emgality Pen 120 mg/mL pen injector 120 mg SUBCUT ONCE Qty: 1 4RF Emgality Pen 120 mg/mL pen injector 240 mg SUBCUT ONCE Qty: 2 0RF Rx Instructions: loading dose albuterol sulfate 90 mcg/actuation HFA aerosol inhaler 2 puff inhalation Q4H PRN (Reason: shortness of breath or wheezing) spironolactone 50 mg tablet 100 mg PO QAM baclofen 20 mg tablet 20 mg PO DAILY Rx Instructions: TAKE 1 TABLET BY MOUTH FOUR TIMES A DAY NEEDED FOR SPASMS FOR 30 DAYS bupropion HCl 300 mg tablet extended release 24 hr 300 mg PO DAILY Rx Instructions: TAKE 1 TABLET BY MOUTH EVERY DAY Discharge Orders: Discharge ED (Routine); Ordered 05/24/24 Ordered By: Jayy Ma Referrals: Joel Isaacs DO [Primary Care Provider] - Patient Instructions: Degenerative Disc Disease (ED) Activity Restrictions/Additional Instructions: You have been referred to orthopedic/spine, await call to schedule appointment for follow-up. Take prednisone as prescribed. Continue taking your prescribed pain medications at home, as well as ibuprofen. Apply heat to the lower back, gentle range of motion exercises as tolerated. Return with any loss of bowel or bladder function, high fever, numbness in the groin region, or any other concerns that you have. Print Language: Faroese Coding Level of Care Code ED [employer] for [employer]
[2024-05-24 16:21] LABS: Bilirubin Urine Negative (Negative); Blood Urine Negative (Negative); Glucose Urine UA Negative (Normal); Ketones Urine Negative (Negative); Leukocyte Esterase Urine Trace (Negative); Nitrate Urine Negative (Negative); Protein Urine Negative (Negative); Specific Gravity, Urine 1.008 (1.005-1.030); Urine Appearance Clear (CLEAR); Urine Color Yellow (Yellow); Urobilinogen Urine 0.2 mg/dL (Negative)
[2024-05-24 16:23] LABS: Add Urine Microscopic? YES; Bacteria Urine None Seen /hpf; Hyaline Casts Urine 0-4 /lpf; RBC Urine 0-2 /hpf (0-2); Squamous Epithelial Cell Urine 0-5 /hpf (0-5); WBC Urine 0-5 /hpf (0-5)
[2024-05-24 16:29] LABS: Add Urine Culture? No
== END 2024-05-24 16:52 | disposition home or self-care (01) ==
PROVIDERS: Emergency Provider Physician Assistant; PCP Family Medicine
DX: M51.362 Other intervertebral disc degeneration, lumbar region with discogenic back pain and lower extremity pain (principal)
CPT/HCPCS: 72131; 81001; 96372; 99284; J1100; J1885; J2360

== ENCOUNTER → 2024-05-25 14:04 | Outpatient (BNVA) | payer OTHER, SELFPAY | PROVIDERS: PCP Family Medicine; Visit Provider Orthopaedic Surgery | DX: M51.362 Other intervertebral disc degeneration, lumbar region with discogenic back pain and lower extremity pain (principal); M48.062 Spinal stenosis, lumbar region with neurogenic claudication | CPT/HCPCS: 72110 ==

== ENCOUNTER 2024-05-29 15:02 | Outpatient (CLI) | payer OTHER, SELFPAY ==
--- NOTE | 2024-05-29 15:30 | MR_ITS ---
WS: [email or web address] MRI LUMBAR SPINE NONCONTRAST TECHNIQUE: Sagittal T1, T2 and STIR imaging. Axial T1 and T2 imaging. CLINICAL INFORMATION: back pain COMPARISON: CT 05/24/2024 and MRI 10/15/2023 FINDINGS: Mild lumbar curve. No acute compression. Disc bulging worse at L4-5. Chronic anterior wedging T12 unchanged. Suspected prior hemilaminectomy L4-5. L1-L2: Mild annular bulging. Slight effacement of the ventral thecal sac. This is progressed compared to previous. Foramen are patent. Slight narrowing of the LEFT subarticular recess. Mild facet arthropathy. L2-L3: Mild annular bulging. Mild facet arthropathy. Spinal canal and foramen are patent. L3-L4: Mild annular bulging with slight impingement on the LEFT subarticular recess and traversing LEFT L4 nerve root. This appears progressed compared to previous. Small LEFT foraminal protrusion impinges the exiting LEFT L3 nerve root. Recommend correlation LEFT L3 and LEFT L4 nerve root symptoms. Moderate facet arthropathy. L4-L5: Disc bulging with impingement on the LEFT subarticular recess and traversing LEFT L5 nerve root. This appears progressed compared to previous. Moderate LEFT foraminal narrowing with a LEFT foraminal protrusion impinges the exiting LEFT L4 nerve root. This appears progressed. Mild RIGHT foraminal narrowing. Mild narrowing of the RIGHT subarticular recess. Moderate facet arthropathy. L5-S1: Moderate facet arthropathy. Spinal canal and foramen are patent. Visualized pelvic bony structures: Normal. Paravertebral soft tissues: Normal. MR/MR lumbar spine wo con* [id number] IMPRESSION: 1. Mild chronic anterior wedging at T12 is unchanged. 2. Progressed LEFT subarticular protrusion L4-5 impinges the traversing LEFT L 5 nerve root in the subarticular recess. Slight impingement on traversing RIGHT L5 nerve root. 3. LEFT foraminal protrusion L4-5 impinges the exiting LEFT L4 nerve root with moderate LEFT foraminal narrowing progressed compared to previous. 4. Mild progressive annular bulging L3-4 slightly impinges the traversing L4 n erve root in the subarticular recess. 5. LEFT foraminal protrusion L3-4 impinges the exiting LEFT L3 nerve root at t his level.
== END 2024-05-29 15:03 | disposition home or self-care (01) ==
PROVIDERS: PCP Family Medicine; Visit Provider Orthopaedic Surgery
DX: M51.26 Other intervertebral disc displacement, lumbar region (principal); R93.7 Abnormal findings on diagnostic imaging of other parts of musculoskeletal system; M51.369 Other intervertebral disc degeneration, lumbar region without mention of lumbar back pain or lower extremity pain; M48.061 Spinal stenosis, lumbar region without neurogenic claudication; M43.8X6 Other specified deforming dorsopathies, lumbar region; M47.896 Other spondylosis, lumbar region; M47.897 Other spondylosis, lumbosacral region
CPT/HCPCS: 72148

== ENCOUNTER 2024-06-08 15:02 | Outpatient (CLI) | payer OTHER, SELFPAY ==
[2024-06-08 15:48] LABS: Thyroid Stimulating Hormone 2.42 uIU/mL (0.27-4.20)
== END 2024-06-08 15:03 | disposition home or self-care (01) ==
LOC: LAB 15:03
PROVIDERS: PCP Family Medicine; Visit Provider Family Medicine
DX: E03.9 Hypothyroidism, unspecified (principal)
CPT/HCPCS: 84443

== ENCOUNTER 2024-09-27 15:14 | Outpatient (CLI) | payer OTHER, SELFPAY ==
--- NOTE | 2024-09-27 15:15 | CT_ITS ---
WS: [email or web address] CT HEAD NONCONTRAST HISTORY: G93.9 - Disorder of brain, unspecified TECHNIQUE: Contiguous axial imaging performed through the brain. Bone and soft tissue windows. Sagittal and coronal reformats reviewed. All CT scans at [facility] use at least one of these dose optimization techniques: automated exposure control; mA and/or kV adjustment per patient size (includes targeted exams where dose is matched to clinical indication); or iterative reconstruction. DLP: 1033.57 mGy.cm COMPARISON: 07/27/2005 No acute intracranial hemorrhage, midline shift or mass effect. No atrophy or prior infarcts or herniation. Densely calcified extra-axial mass towards the RIGHT parietal vertex measures 9.4 mm at maximum diameter. This corresponds to the finding on recent MRI brain of 03/15/2024. Ventricles: Normal size with no hydrocephalus. Mild ectopia of the cerebellar tonsils. Paranasal sinuses: As visualized are clear. Mastoid air cells: Well pneumatized. Calvarium and scalp: Skull is intact with no soft tissue edema or swelling. CT/CT head wo con* [id number] IMPRESSION: 1. No acute intracranial hemorrhage or edema. 2. Calcified extra-axial mass towards the RIGHT parietal vertex. This was also noted on a prior MRI from 03/15/2024. Due to its position and calcification thi s is probably a calcified meningioma. No adjacent cerebral edema. 3. No atrophy or prior infarct. 4. No paranasal sinus disease.
== END 2024-09-27 15:15 | disposition home or self-care (01) ==
LOC: RAD 15:15
PROVIDERS: PCP Family Medicine; Visit Provider Family Medicine
DX: G93.9 Disorder of brain, unspecified (principal); R93.0 Abnormal findings on diagnostic imaging of skull and head, not elsewhere classified
CPT/HCPCS: 70450

== ENCOUNTER 2024-09-28 07:46 | Outpatient (CLI) | payer OTHER, SELFPAY ==
--- NOTE | 2024-09-28 08:00 | MR_ITS ---
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 Post MultiHance imaging 14 mL IV. Mild straightening of the normal cervical lordosis. No acute fractures or marrow edema. Signal within the cervical cord is normal. Visualized posterior fossa is unremarkable. Mild ectopia the cerebellar tonsils. Craniocervical junction, C1 and C2 relationship, odontoid process and soft tissues are normal. C2-C3: Mild facet arthritis. No stenosis. C3-C4: Mild bilateral facet arthritis. Bilateral foraminal osteophytes and disc disease. No stenosis. C4-C5: Moderate sized LEFT foraminal disc osteophyte complex resulting in moderate LEFT foraminal stenosis. No central or RIGHT foraminal stenosis. C5-C6: Bilateral foraminal disc osteophyte complexes resulting in mild to moderate foraminal stenosis, LEFT slightly greater than RIGHT. Minimal central stenosis due to osteophytic ridging. C6-C7: Moderate-sized bilateral foraminal disc osteophyte complexes. Moderate bilateral foraminal stenosis and mild central stenosis. Additional osteophytic ridging and disc bulging. Similar to the prior study. C7-T1: No significant stenosis. No enhancing masses identified. No discitis or osteomyelitis. No enhancing cord lesions. MR/MR cervical spine wo/w [id number] IMPRESSION: 1. No significant progression of foraminal stenosis or degenerative changes in the cervical spine as as compared to 02/25/2024. 2. C4-5: Moderate LEFT foraminal stenosis due to disc osteophyte complex. No c entral or RIGHT foraminal stenosis. 3. C5-6: Mild to moderate bilateral foraminal stenosis due to disc osteophyte complexes. Very mild central stenosis. 4. C6-7: Moderate bilateral foraminal stenosis and mild central stenosis due t o disc osteophyte disease. No progression. 5. Mild ectopia of the cerebellar tonsils.
--- NOTE | 2024-09-28 08:45 | MR_ITS ---
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 COMPARISON: 09/10/2015 TECHNIQUE: Multiplanar sequences are performed in sagittal and axial planes. Postcontrast imaging MultiHance 14 mL. Slight increase in thoracic kyphosis. T9 vertebral hemangioma. Long-term stability mild anterior wedging of T12. Normal signal within the vertebral bodies in the cord. Cord tapers normally and ends at L1. T5-6: Small central disc protrusion. No stenosis. No high-grade foraminal or central stenosis. Mild facet joint arthritis at T10-11, T11-12 and T12-L1. No recurrent mass or areas of abnormal enhancement. Paravertebral soft tissues are normal. MR/MR thoracic spine wo/w [id number] IMPRESSION: 1. Normal signal and postcontrast evaluation of the thoracic spine. No recurre nt nerve sheath tumor. 2. No high-grade central or foraminal stenosis. 3. Small central disc protrusion at T5-6. 4. Stable T12 compression fracture estimated at 15%.
[2024-09-28] MEDS: gadobenate dimeglumine 20 mL vial 14 ML IV (09:13)
--- NOTE | 2024-09-28 09:30 | MR_ITS ---
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 MultiHance 14 mL IV. Small LEFT foraminal osteophytes at C4-5 and C5-6. Stable mild anterior wedging of T12. Normal lumbar alignment with no compression fractures or marrow edema. Disc spaces and vertebral body heights are well-preserved. Conus terminates normally at L1-2 disc level. L1-L2: Normal. L2-L3: Normal. L3-L4: Mild disc bulging with ligamentum flavum and facet arthritis. Very mild encroachment upon the subarticular recesses and traversing L4 nerve roots. No stenosis. Very mild disc encroachment upon the LEFT exiting L3 nerve root. Similar to the prior study. L4-L5: Diffuse asymmetric disc bulging with a moderate-sized LEFT subarticular recess and foraminal disc protrusion. Disc protrusion has slightly increased in size since the prior study. Bilateral facet joint arthritis and ligamentum flavum hypertrophy. Disc contacts the L4 and L5 nerve roots on the LEFT. Lesser contact on the traversing RIGHT L5 nerve root. RIGHT laminectomy defect. L5-S1: Mild annular disc bulging with minimal contact on the RIGHT S1 nerve root. No stenosis. Normal paravertebral soft tissues. No discitis or osteomyelitis. No enhancing masses. MR/MR lumbar spine wo/w con [id number] IMPRESSION: 1. Moderate size LEFT subarticular recess and LEFT foraminal disc protrusion w ith contact on the LEFT L4 and L5 nerve roots. Mildly progressed since the prio r study. 2. RIGHT hemilaminectomy defect at L4-5 new since the prior study. 3. Mild disc encroachment upon the subarticular recesses at L3-4. Mild disc en croachment upon the traversing L4 nerve roots. Minimal disc encroachment also o n the LEFT exiting L3 nerve root. No progression. 4. Mild disc contact on the RIGHT S1 nerve root. 5. Stable mild anterior wedging of T12.
== END 2024-09-28 07:47 | disposition home or self-care (01) ==
PROVIDERS: PCP Family Medicine; Visit Provider Family Medicine
DX: D33.4 Benign neoplasm of spinal cord (principal); Z98.890 Other specified postprocedural states; M48.062 Spinal stenosis, lumbar region with neurogenic claudication; M47.816 Spondylosis without myelopathy or radiculopathy, lumbar region; M51.26 Other intervertebral disc displacement, lumbar region; M48.54XA Collapsed vertebra, not elsewhere classified, thoracic region, initial encounter for fracture
CPT/HCPCS: 72156; 72157; 72158; A9577

== ENCOUNTER 2024-10-03 07:45 | Outpatient (CLI) | payer OTHER, SELFPAY ==
--- NOTE | 2024-10-03 08:00 | MR_ITS ---
WS: [email or web address] MRI HEAD WITH CONTRAST TECHNIQUE: Sagittal T1, T2 axial, T2 axial FLAIR, axial susceptibility weighted imaging, axial diffusion weighted images, and coronal T2 images were obtained. Pre and post-T1 axial and post T1 coronal images. ADC and FSPGR images. CLINICAL INFORMATION: G43.011 - Migraine without aura, intractable, with status... COMPARISON: CT 09/27/2024 and MRI 03/15/2024 FINDINGS: No evidence of restricted diffusion to suggest acute ischemia. No suspicious intracranial signal abnormalities. Minimal small vessel changes. No significant parenchymal volume loss. Incidental low-lying cerebellar tonsils unchanged. Normal vascular flow voids at the skull base. No extra-axial fluid collections. No hemosiderin on susceptibility-weighted imaging. Calcified RIGHT parietal extra-axial lesion likely meningioma better seen on the recent CT and unchanged. Normal optic chiasm and pituitary infundibulum. Normal temporal lobes and hippocampal formations. No abnormal gadolinium enhancement. No other suspicious findings. MR/MR head wo/w con [id number] IMPRESSION: 1. No significant changes since 03/15/2024. 2. No restricted diffusion to suggest acute ischemia. 3. No suspicious intracranial signal abnormalities. 4. Small calcified RIGHT parietal extra-axial lesion likely meningioma better seen on the recent CT and unchanged. 5. No abnormal gadolinium enhancement. 6. No other acute findings.
--- NOTE | 2024-10-03 08:45 | MR_ITS ---
WS: [email or web address] MRA CAROTID WITHOUT AND WITH GADOLINIUM ENHANCEMENT TECHNIQUE: Axial 2-D TOF and gadolinium bolus images obtained with axial images and axial, sagittal, and coronal 2-D reformatted images. CLINICAL INFORMATION: G43.909 - Migraine, unspecified, not intractable, without... COMPARISON: None. FINDINGS: RIGHT: RIGHT common carotid artery is patent. No significant RIGHT ICA stenosis. LEFT: LEFT common carotid artery is patent. No significant LEFT ICA stenosis. Codominant and patent vertebral arteries bilaterally. Proximal basilar artery is patent. Proximal subclavian arteries are patent. MR/MR angio neck w con* [id number] IMPRESSION: Normal neck MRA
[2024-10-03] MEDS: gadobenate dimeglumine 20 mL vial 15 ML IV (09:17)
[2024-10-03 12:09] LABS: Bilirubin Urine Negative (Negative); Blood Urine Negative (Negative); Glucose Urine UA Negative (Normal); Ketones Urine Negative (Negative); Leukocyte Esterase Urine Negative (Negative); Nitrate Urine Negative (Negative); Protein Urine Negative (Negative); Specific Gravity, Urine 1.012 (1.005-1.030); Urine Appearance Clear (CLEAR); Urine Color Yellow (Yellow); Urobilinogen Urine 0.2 mg/dL (Negative)
[2024-10-03 12:15] LABS: Add Urine Microscopic? YES; Bacteria Urine None Seen /hpf; RBC Urine 0-2 /hpf (0-2); Squamous Epithelial Cell Urine 0-5 /hpf (0-5); WBC Urine 0-5 /hpf (0-5)
[2024-10-03 12:17] LABS: Add Urine Culture? No
[2024-10-03 12:20] LABS: Basophils # 0.1 10^3/uL (0.0-0.1); Basophils % 0.9 %; Eosinophils # 0.2 10^3/uL (0.0-0.8); Eosinophils % 3.2 %; Hematocrit 36.7 % (36-47); Lymphocytes # 1.6 10^3/uL (0.8-4.8); Lymphocytes % 26.5 %; Mean Corpuscular HGB Conc 31.3 g/dL (30-55); Mean Corpuscular Hemoglobin 27.4 pg (27-33); Mean Corpuscular Volume 87.4 fl (85-98); Monocytes # 0.6 10^3/uL (0.2-0.9); Monocytes % 10.1 %; Neutrophils # 3.45 10^3/uL (1.8-7.7); Nucleated Red Blood Cells % 0 %; Platelet Count 351 10^3/cmm (157-399); Red Cell Distribution Width 12.7 % (12.1-15.1); White Blood Count 5.85 10^3/uL (3.29-11.43)
[2024-10-03 12:44] LABS: Alanine Aminotransferase 10 U/L (0-33); Albumin Level 4.5 g/dL (3.5-5.2); Alkaline Phosphatase 112 U/L (35-105); Anion Gap 15.4 (5-19); Aspartate Amino Transferase 18 U/L (0-32); Blood Urea Nitrogen 15 mg/dL (6-20); Calcium 9.8 mg/dL (8.5-10.5); Carbon Dioxide 30 mmol/L (22-29); Chloride 97 mmol/L (98-107); Creatinine Clr Calc Pharmacy 76.8778; Globulin 3.8 g/dL (1.3-4.6); Glomerular Filtration Rate 75.3 mL/min (90-130); Glucose 84 mg/dL (65-115); Osmolality Calculated 286 mOsm/kg (285-295); Potassium 4.4 mmol/L (3.5-5.1); Sodium 138 mmol/L (136-145); Total Bilirubin 0.2 mg/dL (0.15-1.2); Total Protein 8.3 g/dL (6.6-8.7)
== END 2024-10-03 07:46 | disposition home or self-care (01) ==
PROVIDERS: Orthopaedic Surgery; PCP Family Medicine; Visit Provider Psychiatry & Neurology Neurology
DX: G43.011 Migraine without aura, intractable, with status migrainosus (principal); M48.062 Spinal stenosis, lumbar region with neurogenic claudication
CPT/HCPCS: 36415; 70548; 70553; 80053; 81001; 85025

== ENCOUNTER 2024-11-06 06:04 | Day surgery (SDC) | payer OTHER, SELFPAY ==
[2024-11-06] VITALS (20 sets, daily range): BP systolic 120–155; BP diastolic 74–113; PULSE 76–86; RESP 13–25; TEMP 36.1–36.6; O2SAT 96–100; BMI 26.0
--- NOTE | 2024-11-06 06:27 | W.PM.OPSUD ---
Surgery/Procedure H&P Update DATE OF PROCEDURE: November 06, 2024 DATE H&P PERFORMED: 10/03/24 H&P UPDATE INFORMATION: I have reviewed H&P completed within last 30 days, I have examined patient prior to procedure and No changes to prior documentation PREOP DIAGNOSIS: Lumbar stenosis with neurogenic claudication PLANNED PROCEDURE: Operation Date: 11/06/24 07:00 Proposed Procedures p Lumbar Spine Decompression(Not Applicable) - Sergio Morin DO
--- NOTE | 2024-11-06 06:29 | ANES.PREANE2 ---
Pre-Anesthetic Assessment Height/Weight: Height 5 ft 3 in Weight 147 lb Temp Pulse Resp BP Pulse Ox O2 Del Method 97.0 F L 83 16 121/94 97 Room Air 11/06/24 06:19 11/06/24 06:19 11/06/24 06:19 11/06/24 06:19 11/06/24 06:19 11/06/24 06:19 Preop Diagnosis: Lumbar stenosis with neurogenic claudication Operation Date: 11/06/24 07:00 Proposed Procedures p Lumbar Spine Decompression(Not Applicable) - Sergio Morin, DO Was Beta Mariam taken within 24 hours: N/A Was Clonidine taken within 24 hours: N/A Last intake: Intake Last Liquid Date 11/05/24 Last Liquid Time 22:00 Last Solid Date 11/05/24 Last Solid Time 22:00 Social No alcohol and No tobacco Exam alert, oriented x 3, clear to auscultation bilaterally and regular rate & rhythm Airway Submandibular: within normal limits Cervical ROM: within normal limits Mallampati: Class III Dentition: full Anesthetic Plan ASA status: 2 Anesthesia: General Other: History of PONV but states that she did well with her last anesthetic and scopolamine patch NPO since yesterday evening Patient on spironolactone for hair loss Fibromyalgia Patient reports mitral valve prolapse but this is hard to auscultate. 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 Thyroid tumor but does not take any medications for this Labs 09/29/2024 reviewed and acceptable for procedure today METs greater than 4 Plan for GETA Medications/Allergies Home Medications ?Medication ?Instructions ?Recorded ?Confirmed ?Last Taken ?Type hydroxyzine HCl 50 mg tablet 50 mg PO QID PRN Anxiety 06/01/19 11/03/24 04/23/23 History 25 mg albuterol sulfate 90 mcg/actuation 2 puff inhalation Q4H PRN 04/28/23 11/03/24 Unknown History aerosol inhaler shortness of breath or wheezing spironolactone 50 mg tablet 100 mg PO QAM 05/31/23 11/06/24 11/06/24 History L.acid,par,plant,rham-B.anim,bif,brev,inf,long 1 cap PO DAILY 12/10/23 11/03/24 11/03/24 History 30 billion cell capsule (Probiotic Digestive Health) apple cider vinegar 500 mg tablet 500 mg PO DAILY 12/10/23 11/03/24 11/03/24 History oxycodone 5 mg capsule 7.5 mg PO Q8H PRN Pain 05/30/24 11/03/24 11/03/24 History galcanezumab-gnlm 120 mg/mL 120 mg SUBCUT Q30D #1 mL 07/12/24 11/03/24 10/07/24 Rx subcutaneous pen injector (Emgality Pen) trazodone 50 mg tablet 50 mg PO BEDTIME #90 tabs 08/28/24 11/03/24 11/03/24 Rx ciprofloxacin 0.3 %-dexamethasone 4 drp otic (ear) BID OE 7 days 10/31/24 11/03/24 11/03/24 Rx 0.1 % ear drops,suspension #7.5 mL baclofen 20 mg tablet 20 mg PO BEDTIME 11/03/24 11/06/24 11/05/24 History bupropion HCl 300 mg 24 hr tablet, 300 mg PO DAILY 11/03/24 11/06/24 11/06/24 History extended release Allergies Allergy/AdvReac Type Severity Reaction Status Date / Time adhesive tape Allergy ALGY-Bliste Verified 11/06/24 06:12 r oxycodone (From OxyContin) Allergy ADR-Anxiety Verified 11/06/24 06:12 prochlorperazine (From Allergy ADR-Nightma Verified 11/06/24 06:12 Compazine) re [facility] Anesthesia Medical History (Updated 10/31/24 @ 10:21 by Joel Isaacs DO) Acromioclavicular joint arthritis Chronic low back pain Fibromyalgia syndrome Occasional cigarette smoker Encounter for long-term opiate analgesic use Low back pain of over 3 months duration Opioid contract exists Surgical History Hx of sinus surgery Hx of hysterectomy Hx of cholecystectomy Hx of appendectomy Hx of laparoscopy scar tissue Hx of spinal surgery 2009 Green removed spinal tumor Family History Unknown Cancer Lung Mother Cancer Breast Cancer Social History Smoking and tobacco/nicotine status: former use of tobacco/nicotine Alcohol intake: current Alcohol intake frequency: holidays/special occasions only Alcohol type: wine Substance/Drug Use: never
[2024-11-06] MEDS: ceFAZolin 2,000 mg SDV 2000 MG IVP (07:05)
[2024-11-06] MEDS: lidocaine-epi 1% 20 mL INJ INJECTION (07:30)
--- NOTE | 2024-11-06 08:06 | PM.OP ---
Operative Report Date of procedure: November 06, 2024 Pre-op diagnosis: Lumbar stenosis with neurogenic claudication Post-op diagnosis: same Procedure done: Revision L4-5 laminectomy with partial facetectomy Surgeon: Sergio Morin DO Estimated blood loss (mL): 5 Procedure: Revision L4-5 laminectomy with partial facetectomy Patient is brought to the operative suite. After undergoing anesthesia they are placed in the prone position. All areas of impingement are well padded. Patient is then prepped and draped in the normal sterile fashion. A skin incision is made over the L4/5 level. This is confirmed under c-arm guidance. A series of dilators are passed and the tubular retractor is docked on the L4 lamina. A bovie is used to clear the soft tissue off the lamina and the L 4/5 facet joint. A high speed tony is then used to perform the laminectomy and take down the medial aspect of the L 4/5 facet joint. A kerrison rongeure was then used to take down the remaining lamina and smooth the edge of the laminectomy up to the point where the ligamentum flavum attaches. Attention was then brought to the medial aspect of the facet joint. The remaining medial aspect of the superior and inferior aspect of the facet joint were taken down with the kerrison from the pedicle of L4 to L 5. The facet joint had significant hypertrophy. Attention was then brought to the Ligamentum Flavum. The ligament was taken down from the lamina of L4 to L5 and out medially to the remaining facet joint. The ligament was scarred. The dura was then exposed. The dura was in good repair. The L4 nerve was then traced with a curette out the L4/5 foramen and found to be adequately decompressed. The L5 nerve was traced with a curette around the L5 pedicle. The lateral recess was opened with a kerrison helping to further decompress the L5 nerve. Wound is then irrigated copiously with saline and surgiflo is used to stop any bleeding. The tubular retractor is removed and the wound is closed with vicryl and monocryl suture. Steri strips were applied. A sterile dressing is then placed. Patient was then placed in the supine position and transferred to the PACU in stable condition.
[2024-11-06] MEDS: fentaNYL 50 mcg/mL INJ 2mL IVP ×3 (08:08→08:55)
[2024-11-06] MEDS: HYDROmorphone 1 mg/mL INJ 1ml ×2 (08:30→08:40)
[2024-11-06] MEDS: oxyCODONE 5 mg IR Tab/Cap 10 MG PO (09:23)
--- NOTE | 2024-11-06 10:25 | ANE.PACU2 ---
Inpatient post-anesthesia follow up: Airway intact: Yes Vital signs: Temperature 97.9 F Pulse Rate 80 Respiratory Rate 17 Blood Pressure 120/85 Pulse Oximetry 98 Oxygen Delivery Me thod Room Air Oxygen Flow Rate Fraction of Inspir ed Oxygen Hydration adequate: Yes Nausea and vomiting: No Pain level: 1 Mental status: Baseline
--- NOTE | 2024-11-06 14:25 | XR_ITS ---
WS: [id number] C-ARM RADIOGRAPHS LUMBAR SPINE; 2 IMAGES HISTORY: or pic, decompression COMPARISON: None available. Intraoperative imaging during spinal decompression. XR/XR lumbar spine 1V [id number] IMPRESSION: Intraoperative imaging during spinal decompression surgery.
--- NOTE | 2024-11-07 11:30 | W.PM.OPSFHP ---
Same Day Surgery H&P Indication for Procedure/HPI DATE OF PROCEDURE: November 06, 2024 CHIEF COMPLAINT/INDICATIONFOR SURGICAL PROCEDURE: Back and leg pain PREOP DIAGNOSIS: Lumbar stenosis with neurogenic claudication PLANNED PROCEDURE: Operation Date: 11/06/24 07:00 Proposed Procedures p Lumbar Spine Decompression(Not Applicable) - Sergio Morin DO Medications/Allergies* Home Medications ?Medication ?Instructions ?Recorded ?Confirmed ?Type hydroxyzine HCl 50 mg tablet 50 mg PO QID PRN Anxiety 06/01/19 11/03/24 History albuterol sulfate 90 mcg/actuation 2 puff inhalation Q4H PRN 04/28/23 11/03/24 History aerosol inhaler shortness of breath or wheezing spironolactone 50 mg tablet 100 mg PO QAM 05/31/23 11/06/24 History L.acid,par,plant,rham-B.anim,bif,brev,inf,long 1 cap PO DAILY 12/10/23 11/06/24 History 30 billion cell capsule (Probiotic Digestive Health) apple cider vinegar 500 mg tablet 500 mg PO DAILY 12/10/23 11/06/24 History baclofen 20 mg tablet 20 mg PO BEDTIME 11/03/24 11/06/24 History bupropion HCl 300 mg 24 hr tablet, 300 mg PO DAILY 11/03/24 11/06/24 History extended release Allergies/Adverse Reactions Allergy/AdvReac Type Severity Reaction Status Date / Time adhesive tape Allergy ALGY-Bliste Verified 11/06/24 06:12 r oxycodone (From OxyContin) Allergy ADR-Anxiety Verified 11/06/24 06:12 prochlorperazine (From Allergy ADR-Nightma Verified 11/06/24 06:12 Compazine) re Pertinent History/Comorbid Conditions* Medical History (Updated 10/31/24 @ 10:21 by Joel Isaacs DO) Acromioclavicular joint arthritis Chronic low back pain Fibromyalgia syndrome Occasional cigarette smoker Encounter for long-term opiate analgesic use Low back pain of over 3 months duration Opioid contract exists Surgical History (Updated 01/20/24 @ 17:01 by Sergio Morin DO) Hx of sinus surgery Hx of hysterectomy Hx of cholecystectomy Hx of appendectomy Hx of laparoscopy scar tissue Hx of spinal surgery 2009 Green removed spinal tumor Family History (Updated 06/01/19 @ 11:08 by KRISTIE Spicer) Cancer Unknown Lung Mother Breast Cancer Social History Smoking and tobacco/nicotine status: former use of tobacco/nicotine Alcohol intake: current Alcohol intake frequency: holidays/special occasions only Alcohol type: wine Substance/Drug Use: never Pertinent Exam Findings alert, oriented x 3 and procedure specific exam findings Recommendations Risks and benefits of procedure reviewed Surgery/Procedure today Coding Level of Care Code Acute Code for amparo Kirby
== END 2024-11-06 10:25 | disposition home or self-care (01) ==
PROVIDERS: PCP Family Medicine; Visit Provider Orthopaedic Surgery
PROC: (CPT 63005; principal; 2024-11-06 07:00)
DX: M48.062 Spinal stenosis, lumbar region with neurogenic claudication (principal); M79.7 Fibromyalgia; F17.210 Nicotine dependence, cigarettes, uncomplicated; Z79.891 Long term (current) use of opiate analgesic; I34.1 Nonrheumatic mitral (valve) prolapse; E06.3 Autoimmune thyroiditis
CPT/HCPCS: 63047; 72020; 76000; J0330; J0690; J1100; J1171; J2250; J2405; J2704; J3010; J7030; J9999

== ENCOUNTER 2025-01-18 16:22 | Emergency (ER) | payer OTHER, SELFPAY ==
[2025-01-18 16:25] VITALS: BMI 26.0
[2025-01-18 16:27] VITALS: BP 170/113; PULSE 85; RESP 19; TEMP 36.7; O2SAT 98
--- NOTE | 2025-01-18 16:27 | XRR_ITS ---
PROCEDURE INFORMATION: Exam: XR Chest Exam date and time: 01/18/2025 4:37 PM Age: 54 years old Clinical indication: Pain; Chest pressure; Additional info: Chest pain TECHNIQUE: Imaging protocol: Radiologic exam of the chest. Views: 1 view. COMPARISON: CR XR chest 1V portable [id number] 11/21/2020 7:32 PM FINDINGS: Lungs: No infiltrates. No suspicious masses or nodules. Calcified granuloma in the left lower lobe. Pleural spaces: No pleural effusions or pneumothorax. Heart/Mediastinum: Heart size within normal limits. No pulmonary vascular congestion. Bones/joints: No significant osseous lesion. No fractures. XR/XR chest 1V portable [id number] IMPRESSION: No acute cardiopulmonary findings radiographically.
--- NOTE | 2025-01-18 16:27 | W.ED.CHESTPA ---
HPI - Chest Pain General: Chief Complaint: Chest Pain Stated Complaint: chest pain Time Seen by Provider: 01/18/25 16:27 History of Present Illness: 54-year-old female with a history of chronic pain syndrome who says she is currently detoxing off of her oxycodone that she took for the last 15 years, fibromyalgia, who presents to the emergency room with chest tightness. She says this is all over her entire chest and down into her arms bilaterally and up into her neck bilaterally. This been going on for couple of hours. She says she has tingling in her lips. Related Data Home Medications ?Medication ?Instructions ?Recorded ?Confirmed hydroxyzine HCl 50 mg tablet 50 mg PO QID PRN Anxiety 06/01/19 12/19/24 albuterol sulfate 90 mcg/actuation 2 puff inhalation Q4H PRN 04/28/23 12/19/24 aerosol inhaler shortness of breath or wheezing spironolactone 50 mg tablet 100 mg PO QAM 05/31/23 12/19/24 L.acid,par,plant,rham-B.anim,bif,brev,inf,long 1 cap PO DAILY 12/10/23 12/19/24 30 billion cell capsule (Probiotic Digestive Health) apple cider vinegar 500 mg tablet 500 mg PO DAILY 12/10/23 12/19/24 baclofen 20 mg tablet 20 mg PO BEDTIME 11/03/24 12/19/24 bupropion HCl 300 mg 24 hr tablet, 300 mg PO DAILY 11/03/24 12/19/24 extended release Previous Rx's ?Medication ?Instructions ?Recorded trazodone 50 mg tablet 50 mg PO BEDTIME #90 tabs 08/28/24 ciprofloxacin 0.3 %-dexamethasone 4 drp otic (ear) BID OE 7 days 10/31/24 0.1 % ear drops,suspension #7.5 mL ondansetron HCl 8 mg tablet 8 mg PO Q12H 7 days #14 tabs 11/06/24 oxycodone 10 mg tablet 10 mg PO Q4H PRN pain 7 days #42 11/14/24 tabs galcanezumab-gnlm 120 mg/mL See Rx Instructions .Route 12/21/24 subcutaneous pen injector .COMPLEX #1 mL (Emgality Pen) hydroxyzine HCl 25 mg tablet 25 mg PO BID PRN anxiety #30 tabs 01/18/25 ondansetron 4 mg disintegrating 4 mg PO Q8H PRN nausea and 01/18/25 tablet vomiting #10 tabs Allergies Allergy/AdvReac Type Severity Reaction Status Date / Time adhesive tape Allergy ALGY-Bliste Verified 12/19/24 08:20 r oxycodone (From OxyContin) Allergy ADR-Anxiety Verified 12/19/24 08:20 prochlorperazine (From Allergy ADR-Nightma Verified 12/19/24 08:20 Compazine) re Review of Systems Narrative: Constitutional symptoms: Negative except as documented in HPI. Skin symptoms: Negative except as documented in HPI. Eye symptoms: Negative except as documented in HPI. ENMT symptoms: Negative except as documented in HPI. Respiratory symptoms: Negative except as documented in HPI. Cardiovascular symptoms: Negative except as documented in HPI. Gastrointestinal symptoms: Negative except as documented in HPI. Genitourinary symptoms: Negative except as documented in HPI. Musculoskeletal symptoms: Negative except as documented in HPI. Neurologic symptoms: Negative except as documented in HPI. Psychiatric symptoms: Negative except as documented in HPI. Endocrine symptoms: Negative except as documented in HPI. PFS ED PFSH: Medical History (Updated 01/18/25 @ 17:34 by Renetta Olivarez MD) Acromioclavicular joint arthritis Chronic low back pain Fibromyalgia syndrome Occasional cigarette smoker Encounter for long-term opiate analgesic use Low back pain of over 3 months duration Opioid contract exists Surgical History Hx of sinus surgery Hx of hysterectomy Hx of cholecystectomy Hx of appendectomy Hx of laparoscopy scar tissue Hx of spinal surgery 2009 Green removed spinal tumor Family History Unknown Cancer Lung Mother Cancer Breast Cancer Social History Smoking and tobacco/nicotine status: never used tobacco/nicotine Alcohol intake: current Alcohol intake frequency: holidays/special occasions only Alcohol type: wine Substance/Drug Use: never Physical Exam Narrative: EXAM NARRATIVE: General: Alert, no acute distress. Skin: Warm, dry. Head: Normocephalic, atraumatic. Neck: Supple, trachea midline. Eye: Extraocular movements are intact. Ears, nose, mouth and throat: mucosa moist. Cardiovascular: Regular, Normal peripheral perfusion. Respiratory: Lungs are clear to auscultation, respirations are non-labored, breath sounds are equal, Symmetrical chest wall expansion. Gastrointestinal: Soft, Nontender, Non distended Musculoskeletal: Normal ROM, no deformity. Neurological: Alert and oriented, No focal neurological deficit observed. Psychiatric: Cooperative, appropriate mood & affect. Course Vital Signs: Vital signs: Vital Signs Temperature 98.0 F 01/18/25 16:27 Pulse Rate 82 01/18/25 17:13 Respiratory Rate 14 01/18/25 17:13 Blood Pressure 157/119 01/18/25 17:13 Pulse Oximetry 97 01/18/25 17:13 MDM - Chest Pain Medical Decision Making Differential diagnosis for patient with chest pain includes but is not limited to and based on the above HPI, review of systems and physical exam: Pneumonia. unstable angina. angina. Acute coronary syndrome / NM. Pulmonary embolism. Costochondritis / musculoskeletal. Pleurisy. Pericarditis. Esophageal spasm. Pancreatis. Cholecystitis. Orders placed to evaluate differential diagnosis based on the above differential, HPI and physical exam EKG: Time 1628. Rate 86. Normal sinus rhythm, nonspecific T wave abnormality, no ectopy, normal VA & QRS intervals, This was reviewed and interpreted by myself the ER physician at 1633 Chest x-ray: No acute process. No infiltrate. No pneumothorax. This was reviewed and interpreted by myself the emergency room physician. I also reviewed the radiology report. Lab Review: Laboratory results were reviewed and interpreted by myself the emergency room physician. No leukocytosis. No anemia. No renal failure. Liver enzymes are normal. Troponin negative. I reviewed the patient's medical record. Reexamination: Patient remained stable. No increased work of breathing. No altered mental status. No focal motor deficits. Assessment and plan: Opiate withdrawal Anxiety ? Ativan in the emergency room. Home with hydroxyzine and Zofran. - Discharged home - Discussed plan with patient. Answered any questions. - Evaluation and treatment of this problem were appropriate in the emergency setting. Lab Data 01/18/25 16:32 01/18/25 16:32 Radiology Impressions Chest X-Ray 01/18/25 16:27 IMPRESSION: No acute cardiopulmonary findings radiographically. Laboratory Results WBC 8.13 10^3/uL (3.29-11.43) 01/18/25 16: RBC 4.58 10^6/uL (3.85-5.65) 01/18/25 16:32 Hgb 11.70 g/dL (11.27-16.99) 01/18/25 16:32 Hct 36.9 % (36-47) 01/18/25 16: MCV 80.6 fl (85-98) L 01/18/25 16:32 MCH 25.5 pg (27-33) L 01/18/25 16: MCHC 31.7 g/dL (30-55) 01/18/25 16: RDW 14.6 % (12.1-15.1) 01/18/25 16: Plt Count 342 10^3/cmm (157-399) 01/18/25 16: MPV 8.9 fL (7.4-10.4) 01/18/25 16:32 Neut % (Auto) 64.8 % 01/18/25 16:32 Lymph % (Auto) 24.1 % 01/18/25 16:32 [place] % (Auto) 9.3 % 01/18/25 16:32 Eos % (Auto) 1.1 % 01/18/25 16:32 Baso % (Auto) 0.5 % 01/18/25 16:32 Neut # (Auto) 5.26 10^3/uL (1.8-7.7) 01/18/25 16:32 Lymph # (Auto) 2.0 10^3/uL (0.8-4.8) 01/18/25 16:32 [place] # (Auto) 0.8 10^3/uL (0.2-0.9) 01/18/25 16:32 Eos # (Auto) 0.1 10^3/uL (0.0-0.8) 01/18/25 16:32 Baso # (Auto) 0.0 10^3/uL (0.0-0.1) 01/18/25 16:32 Nucleated RBC % (auto) 0 % 01/18/25 16: Nucleated RBCs # 0.0 /100WBC 01/18/25 16:32 Specimen Type Arterial 01/18/25 17:08 Sample Site Radial, right 01/18/25 17:08 ABG pH 7.42 (7.35-7.45) 01/18/25 17:08 ABG pCO2 40.6 mmHg (35-45) 01/18/25 17:08 ABG pO2 85.9 mmHg (80.0-100.0) 01/18/25 17:08 ABG PO2/FiO2 Ratio 409 01/18/25 17:08 ABG HCO3 26.6 mmol/L (22-26) H 01/18/25 17:08 ABG O2 Saturation 97.4 01/18/25 17:08 ABG Base Excess 2.0 mmol/L (-2.0-2.0) 01/18/25 17:08 Gaudencio Test Pos 01/18/25 17:08 A-a O2 Gradient 1.8 mmHg (5-10) L 01/18/25 17:08 Hematocrit 34.8 % (37-47) L 01/18/25 17:08 Hgb O2 Saturation 95.9 % (95-100) 01/18/25 17:08 Carboxyhemoglobin 0.5 %THgb (0.4-20.1) 01/18/25 17:08 Methemoglobin 1.0 % (0.4-1.5) 01/18/25 17:08 Total Hemoglobin 11.4 g/dL (12-16) L 01/18/25 17:08 Sodium 143.0 mmol/L (131-143) 01/18/25 17:08 Potassium 3.7 mmol/L (3.5-5.0) 01/18/25 17:08 Glucose 95.0 mg/dL (70-115) 01/18/25 17:08 Ionized Calcium 1.2 mmol/L (1.1-1.4) 01/18/25 17:08 O2 Delivery Device Room air 01/18/25 17:08 FiO2 21.0 % 01/18/25 17:08 Digital Media Manager ID Addi 01/18/25 17:08 Sodium 141 mmol/L (136-145) 01/18/25 16:32 Potassium 3.9 mmol/L (3.5-5.1) 01/18/25 16:32 Chloride 102 mmol/L (98-107) 01/18/25 16:32 Carbon Dioxide 24 mmol/L (22-29) 01/18/25 16:32 Anion Gap 18.9 (5-19) 01/18/25 16:32 BUN 13 mg/dL (6-20) 01/18/25 16:32 Creatinine 0.8 mg/dL (0.5-0.9) 01/18/25 16:32 GFR Calculation 75.3 mL/min (90-130) L 01/18/25 16:32 Glucose 102 mg/dL (65-115) 01/18/25 16:32 Calculated Osmolality 292 mOsm/kg (285-295) 01/18/25 16:32 Calcium 9.7 mg/dL (8.5-10.5) 01/18/25 16:32 Total Bilirubin 0.2 mg/dL (0.15-1.2) 01/18/25 16:32 AST 18 U/L (0-32) 01/18/25 16:32 ALT 8 U/L (0-33) 01/18/25 16:32 Alkaline Phosphatase 129 U/L (35-105) H 01/18/25 16:32 Troponin T Baseline < 6 ng/L (0-10) 01/18/25 16:32 NT-Pro-B Natriuret Pep < 36 pg/mL (0-125) 01/18/25 16:32 Total Protein 8.0 g/dL (6.6-8.7) 01/18/25 16:32 Albumin 4.9 g/dL (3.5-5.2) 01/18/25 16:32 Globulin 3.1 g/dL (1.3-4.6) 01/18/25 16:32 All radiology interpretation(s) finalized by discharge Clincial Decision Support The following clinical decision support tools were used to aid in care of the patient HEART Score -> History: Slightly Suspicous, EKG: Normal, Age: 45-64 yrs, Risk Factors: No Risk Factors Known, Troponin: Baseline Trop <16 ng/L. Resulting HEART Score: 1. Discharge Plan Discharge Patient Disposition: Home Clinical Impression: Non-cardiac chest pain, Anxiety, Opiate withdrawal Condition: Stable Prescriptions: New hydroxyzine HCl 25 mg tablet 25 mg PO BID PRN (Reason: anxiety) Qty: 30 0RF ondansetron 4 mg tablet,disintegrating 4 mg PO Q8H PRN (Reason: nausea and vomiting) Qty: 10 0RF No Action hydroxyzine HCl 50 mg tablet 50 mg PO QID PRN (Reason: Anxiety) apple cider vinegar 500 mg tablet 500 mg PO DAILY Probiotic Digestive Health 30 billion cell capsule 1 cap PO DAILY ciprofloxacin-dexamethasone 0.3-0.1 % drops,suspension 4 drp otic (ear) BID 7 Days Qty: 7.5 0RF trazodone 50 mg tablet 50 mg PO BEDTIME Qty: 90 1RF ondansetron HCl 8 mg tablet 8 mg PO Q12H 7 Days Qty: 14 0RF oxycodone 10 mg tablet 10 mg PO Q4H PRN (Reason: pain) 7 Days Qty: 42 0RF Emgality Pen 120 mg/mL pen injector See Rx Instructions .ROUTE .COMPLEX Qty: 1 5RF Dose Instruction: INJECT one pen (120mg) UNDER THE SKIN once EVERY 30 DAYS Rx Instructions: INJECT one pen (120mg) UNDER THE SKIN once EVERY 30 DAYS albuterol sulfate 90 mcg/actuation HFA aerosol inhaler 2 puff inhalation Q4H PRN (Reason: shortness of breath or wheezing) spironolactone 50 mg tablet 100 mg PO QAM baclofen 20 mg tablet 20 mg PO BEDTIME Rx Instructions: TAKE 1 TABLET BY MOUTH FOUR TIMES A DAY NEEDED FOR SPASMS FOR 30 DAYS bupropion HCl 300 mg tablet extended release 24 hr 300 mg PO DAILY Rx Instructions: TAKE 1 TABLET BY MOUTH EVERY DAY Discharge Orders: Discharge ED (Routine); Ordered 01/18/25 Ordered By: Renetta Olivarez Referrals: Joel Isaacs DO [Primary Care Provider, Family Practice] Discharge Diet: Usual diet Discharge Activity: Increase activity as tolerated Patient Instructions: Opioid Safety, Pain Management, Patient Portal & Jessica Instructions Activity Restrictions/Additional Instructions: Thank you for choosing [facility] for your healthcare needs today. You have been screened and evaluated and felt safe for discharge. Health conditions do change or evolve sometimes and as such it is important that you follow up with your Primary Doctor to be re checked, 3-5 days is a general good time frame for follow up. You are always welcome to return to the ED for re assessment if your symptoms are worsening or you have new concerns Print Language: Swedish Coding Level of Care Code ED Adhesive Bandage Machine Operator for Chg Fwd Heart Score HEART Score Components History: Slightly Suspicous EKG: Normal Age: 45-64 yrs Risk Factors: No Risk Factors Known Troponin: Baseline Trop <16 ng/L HEART Score RESULT HEART Score: 1
--- NOTE | 2025-01-18 16:28 | ECG_ITS ---
[facility] Test Date: 2025-01-18 Pat Name: Gena Maldonado Department: Room: Gender: Female Employment Counselor: : 1970 Requested By: Renetta Wilson Order Number: [id number] Shavon MD: JANETTE ZACARIAS Measurements Intervals [place] Rate: 86 P: 70 ND: 160 QRS: 53 QRSD: 90 T: 16 QT: 358 QTc: 429 Interpretive Statements SINUS RHYTHM POSSIBLE LEFT ATRIAL ENLARGEMENT [-0.1mV P-WAVE IN V1/V2] POSSIBLE RIGHT VENTRICULAR CONDUCTION DELAY [RSR (QR) IN V1/V2] NONSPECIFIC T-WAVE ABNORMALITY Compared to ECG 07/20/2016 09:07:36 T-wave abnormality now present Electronically Signed On 01-18-2025 16:49:08 CDT by JANETTE ZACARIAS [email or web address]
[2025-01-18 16:42] LABS: Hematocrit 36.9 % (36-47); Hemoglobin 11.70 g/dL (11.27-16.99); Mean Corpuscular HGB Conc 31.7 g/dL (30-55); Mean Corpuscular Hemoglobin 25.5 pg (27-33); Mean Corpuscular Volume 80.6 fl (85-98); Nucleated Red Blood Cells % 0 %; Platelet Count 342 10^3/cmm (157-399); Red Blood Count 4.58 10^6/uL (3.85-5.65); White Blood Count 8.13 10^3/uL (3.29-11.43)
[2025-01-18 17:06] LABS: Troponin(5th) Baseline < 6 ng/L (0-10)
[2025-01-18 17:12] LABS: Alanine Aminotransferase 8 U/L (0-33); Albumin Level 4.9 g/dL (3.5-5.2); Alkaline Phosphatase 129 U/L (35-105); Anion Gap 18.9 (5-19); Aspartate Amino Transferase 18 U/L (0-32); Blood Urea Nitrogen 13 mg/dL (6-20); Calcium 9.7 mg/dL (8.5-10.5); Carbon Dioxide 24 mmol/L (22-29); Chloride 102 mmol/L (98-107); Creatinine Clr Calc Pharmacy 75.4639; Globulin 3.1 g/dL (1.3-4.6); Glucose 102 mg/dL (65-115); NT Pro B Type Natriuretic Pept < 36 pg/mL (0-125); Osmolality Calculated 292 mOsm/kg (285-295); Potassium 3.9 mmol/L (3.5-5.1); Sodium 141 mmol/L (136-145); Total Protein 8.0 g/dL (6.6-8.7)
[2025-01-18 17:13] VITALS: BP 157/119; PULSE 82; RESP 14; O2SAT 97
[2025-01-18 17:19] LABS: ABG PCO2 40.6 mmHg (35-45); ABG PH Result 7.42 (7.35-7.45); Alveolar-Arterial Oxygen Gradi 1.8 mmHg (5-10); Arterial Blood Gas Hematocrit 34.8 % (37-47); Blood Gas Allen Test Pos; Blood Gas Operator Identificat WALCI; Blood Gas Sample Site Radial, right; Blood Gas Sample Type Arterial; Carboxyhemoglobin 0.5 %THgb (0.4-20.1); Glucose Level-ABG 95.0 mg/dL (70-115); HCO3 ABG 26.6 mmol/L (22-26); Ionized Calcium Level - ABG 1.2 mmol/L (1.1-1.4); Methemoglobin 1.0 % (0.4-1.5); Oxygen Saturation ABG 97.4; PO2 ABG 85.9 mmHg (80.0-100.0); PO2 FiO2 Ratio Arterial Blood 409; Potassium Level - ABG 3.7 mmol/L (3.5-5.0); Sodium Level - ABG 143.0 mmol/L (131-143)
[2025-01-18] MEDS: LORazepam 1 MG/0.5 ML injection IVP (17:40)
[2025-01-18 18:07] VITALS: BP 167/113; PULSE 86; O2SAT 98
== END 2025-01-18 18:09 | disposition home or self-care (01) ==
PROVIDERS: Emergency Provider Emergency Medicine; PCP Family Medicine
DX: R07.89 Other chest pain (principal); F41.9 Anxiety disorder, unspecified; F11.23 Opioid dependence with withdrawal; T40.2X5A Adverse effect of other opioids, initial encounter; X58.XXXA Exposure to other specified factors, initial encounter
CPT/HCPCS: 36415; 36600; 71045; 80051; 80053; 82330; 82805; 83880; 84484; 85025; 93005; 96374; 99285; J2060; J9999